=== PATIENT | male | born 1980 | race Caucasian/White ===

== ENCOUNTER → 2019-05-20 | Outpatient (CLI) | payer OTHER ==
--- NOTE | 2019-05-20 21:23 | XR ---
EXAMINATION TYPE: XR cervical spine comp, 5 views XR thoracic spine 3 views XR lumbosacral spine min 5 views DATE OF EXAM: 05/20/2019 COMPARISON: None HISTORY: 39-year-old male with back pain FINDINGS: Cervical spine: Mild facet arthropathy. Disc interspaces are relatively maintained. No predental space widening or pr evertebral soft tissue swelling. Alignment is maintained. Normal odontoid view. Mild bony spondylotic neuroforaminal narrowing on the right at C3-C4 and C6-C7. Limited assessment of the left-sided neuro foramen due to the degree of obliquity. Thoracic spine: 12 rib bearing thoracic vertebral bodies. All pedicles are visualized. Mild endplate spondylosis mid to lower thoracic spine. Vertebral body heights are preserved and alignment is maintained. Lumbar spine: 5 lumbar type vertebral bodies. No pars interarticularis defect. Scattered mild facet degenerative ch alban. Vertebral body height and alignment is maintained. Disc interspaces relatively maintained. IMPRESSION: 1. Cervical spine: Scattered mild facet arthropathy. Mild bony neuroforaminal narrowing on the right at C3-C4 and C6-C7. 2. Thoracic spine: Mild endplate spondylosis mid to lower thoracic spine. No vertebral compression co llapse or malalignment. 3. Lumbar spine: Mild facet arthropathy. No vertebral compression collapse or malalignment.
== END | disposition home or self-care (01) ==
LOC: RADXRMAIN 16:16
PROVIDERS: ATTEND Internal Medicine
DX: M48.02 Spinal stenosis, cervical region (principal); M46.92 Unspecified inflammatory spondylopathy, cervical region; M47.814 Spondylosis without myelopathy or radiculopathy, thoracic region; M46.96 Unspecified inflammatory spondylopathy, lumbar region; E29.1 Testicular hypofunction
CPT/HCPCS: 72050; 72070; 72110; 84402; 84403

== ENCOUNTER 2022-03-15 20:09 | Emergency (ER) | payer OTHER ==
[2022-03-15 20:26] VITALS: TEMP 99.2
[2022-03-15] MEDS ORDERED: SODIUM CHLORIDE 0.9% 1,000 ML IV STA (20:28)
[2022-03-15] MEDS ORDERED: LORazepam 2 MG/ML INJ IV STA ×2 (20:28→22:47)
--- NOTE | 2022-03-15 20:31 | ED ---
General Adult HPI - General Chief complaint: Seizure Stated complaint: Seizure Time Seen by Provider: 03/15/22 20:27 Source: EMS Mode of arrival: EMS Limitations: no limitations - History of Present Illness Initial comments: This is a pleasant 42-year-old male with a history of alcoholism and thyroid disorder. Patient currently at [facility] for alcohol abuse. Patient's last drink was 4 days ago. According to [facility] staff patient had seizure activity lasting for about 60 seconds. This was tonic- clonic event. Patient states he did have a prodrome of seeing stars, a warm feeling prior to the seizure. Patient has no history of seizure activity. No current complaints. Denies any notable injury.Patient states that the symptoms of lightheadedness, seeing stars actually occurred earlier today as well after he witnessed a seizure. 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 Patient states he again felt lightheaded and was seeing stars. Next thing he knows he was on the ground. Patient is unsure how long he was out. It does not sound like there is any postictal episode. No headache, no fever or chills, no changes in vision or hearing, no sore throat or difficulty with speech, no neck pain, no chest pain or shortness of breath, no abdominal pain, no nausea or vomiting, no changes in urination or bowel movements, no numbness or tingling, no extremity pain, no skin rashes or lesions. - Related Data Home Medications Medication Instructions Recorded Confirmed Baclofen [Lioresal] 10 mg PO BID 03/15/22 03/15/22 Folic Acid 1 mg PO DAILY 03/15/22 03/15/22 Naproxen [EC-Naprosyn] 500 mg PO BID PRN 03/15/22 03/15/22 Nicotine 21Mg/24Hr Patch [Habitrol] 1 patch TRANSDERM DAILY PRN 03/15/2202/25 buPROPion SR [Wellbutrin SR] 150 mg PO BID PRN 03/15/22 03/15/22 busPIRone HCL 15 mg PO BID PRN 03/15/22 03/15/22 tiZANidine HCL 4 mg PO HS PRN 03/15/22 03/15/22 Allergies Allergy/AdvReac Type Severity Reaction Status Date / Time nickel Allergy Rash/Hives Verified 03/15/22 21:27 latex AdvReac Rash/Hives Verified 03/15/22 21:27 Review of Systems ROS Statement: Those systems with pertinent positive or pertinent negative responses have been documented in the HPI. ROS Other: All systems not noted in ROS Statement are negative. Past Medical History Past Medical History: Thyroid Disorder History of Any Multi-Drug Resistant Organisms: MRSA Date of last positivie culture/infection: 2012 MDRO Source:: rt FA Past Surgical History: Orthopedic Surgery Past Psychological History: Depression Smoking Status: Current every day smoker Past Alcohol Use History: Daily Past Drug Use History: Marijuana General Exam - General Exam Comments Initial Comments: Cranial nerves 2 through 12 intact. No focal neurologic deficits. Limitations: no limitations General appearance: alert, in no apparent distress Head exam: Present: atraumatic, normocephalic, normal inspection Eye exam: Present: normal appearance, PERRL, EOMI. Absent: scleral icterus, conjunctival injection, periorbital swelling Pupils: Present: normal accommodation. Absent: unequal ENT exam: Present: normal exam, normal oropharynx, mucous membranes moist, TM's normal bilaterally, normal external ear exam. Absent: mucous membranes dry Neck exam: Present: normal inspection, tenderness (Mild muscular tenderness. No midline tenderness.), full ROM. Absent: meningismus, lymphadenopathy Respiratory exam: Present: normal lung sounds bilaterally. Absent: respiratory distress, wheezes, rales, rhonchi, stridor, chest wall tenderness, accessory muscle use Cardiovascular Exam: Present: regular rate, normal rhythm, normal heart sounds. Absent: systolic murmur, diastolic murmur, rubs, gallop, clicks GI/Abdominal exam: Present: soft, normal bowel sounds. Absent: distended, tenderness, guarding, rebound, rigid Extremities exam: Present: normal inspection, full ROM, normal capillary refill. Absent: tenderness, pedal edema, joint swelling, calf tenderness Back exam: Present: normal inspection Neurological exam: Present: alert, oriented X3, CN II-XII intact, normal gait, reflexes normal. Absent: altered, abnormal gait, motor sensory deficit Psychiatric exam: Present: normal affect, normal mood Skin exam: Present: warm, dry, intact, normal color. Absent: rash Course Vital Signs 03/15/22 03/15/22 20:14 21:33 Temperature 99.2 F Pulse Rate 75 89 Respiratory 18 18 Rate Blood Pressure 135/85 120/83 O2 Sat by Pulse 96 98 Oximetry - Reevaluation(s) Reevaluation #1: 03/15/22 22:39 Medical record is reviewed Symptoms are improved here in the emergency department Patient is informed of results and questions answered Patient in no distress Repeat neurological evaluation is benign. Patient in no distress. EKG Findings - EKG Comments: EKG Findings:: EKG done at 9 PM and read by the ED attending physician reveals sinus rhythm with rate of 77, normal intervals, normal axis, no acute ST or T- wave changes. Normal QRS morphology. Medical Decision Making - Medical Decision Making Differential includes seizure versus syncopal episode. Given the patient's appearance and subjective complaints I believe this was more likely be a syncopal episode. Patient currently in no distress. Neurologically intact. Complaining of a bit of a stiff neck. Workup ordered. The case was discussed in detail with ED attending physician. Presentation, findings, treatment plan discussed in det Dr. Franz I suspect patient may have had a syncopal episode. There was no postictal period, no loss of bowel or bladder control. No tongue biting. We'll keep the patient without driving until follow-up with regular physician and neurology. - Lab Data Result diagrams: 03/15/22 20:31 03/15/22 20:31 Lab Results 03/15/22 03/15/22 03/15/22 Range/Units 20:31 20:31 20:39 WBC 6.0 (3.8-10.6) k/uL RBC 3.61 L (4.30-5.90) m/uL Hgb 12.4 L (13.0-17.5) gm/dL Hct 36.6 L (39.0-53.0) % MCV 101.2 H (80.0-100.0) fL MCH 34.4 (25.0-35.0) pg MCHC 34.0 (31.0-37.0) g/dL RDW 15.7 H (11.5-15.5) % Plt Count 161 (150-450) k/uL MPV 8.3 Neutrophils % (Manual) 74 % Lymphocytes % (Manual) 17 % Monocytes % (Manual) 6 % Eosinophils % (Manual) 3 % Neutrophils # (Manual) 4.44 (1.3-7.7) k/uL Lymphocytes # (Manual) 1.02 (1.0-4.8) k/uL Monocytes # (Manual) 0.36 (0-1.0) k/uL Eosinophils # (Manual) 0.18 (0-0.7) k/uL Nucleated RBCs 0 (0-0) /100 WBC Manual Slide Review Performed Macrocytosis Slight Sodium 136 L (137-145) mmol/L Potassium 4.3 (3.5-5.1) mmol/L Chloride 104 (98-107) mmol/L Carbon Dioxide 27 (22-30) mmol/L Anion Gap 5 mmol/L BUN 14 (9-20) mg/dL Creatinine 0.58 L (0.66-1.25) mg/dL Est GFR (CKD-EPI)AfAm >90 (>60 ml/min/1.73 sqM) Est GFR (CKD-EPI)NonAf >90 (>60 ml/min/1.73 sqM) Glucose 122 H (74-99) mg/dL Calcium 9.2 (8.4-10.2) mg/dL Magnesium 1.9 (1.6-2.3) mg/dL Total Bilirubin 0.6 (0.2-1.3) mg/dL AST 80 H (17-59) U/L ALT 99 H (4-49) U/L Alkaline Phosphatase 44 (38-126) U/L Total Protein 6.9 (6.3-8.2) g/dL Albumin 3.9 (3.5-5.0) g/dL Urine Color Yellow Urine Appearance Cloudy (Clear) Urine pH 6.5 (5.0-8.0) Ur Specific [place] 1.024 (1.001-1.035) Urine Protein 1+ H (Negative) Urine Glucose (UA) Negative (Negative) Urine Ketones Negative (Negative) Urine Blood Negative (Negative) Urine Nitrite Negative (Negative) Urine Bilirubin Negative (Negative) Urine Urobilinogen <2.0 (<2.0) mg/dL Ur Leukocyte Esterase Negative (Negative) Urine RBC 2 (0-5) /hpf Urine WBC 4 (0-5) /hpf Urine Bacteria Moderate H (None) /hpf Hyaline Casts 9 H (0-2) /lpf Urine Mucus Many H (None) /hpf Urine Opiates Screen Not Detected (NotDetected) Ur Oxycodone Screen Not Detected (NotDetected) Urine Methadone Screen Not Detected (NotDetected) Ur Propoxyphene Screen Not Detected (NotDetected) Ur Barbiturates Screen Not Detected (NotDetected) U Tricyclic Antidepress Not Detected (NotDetected) Ur Phencyclidine Scrn Not Detected (NotDetected) Ur Amphetamines Screen Not Detected (NotDetected) U Methamphetamines Scrn Not Detected (NotDetected) U Benzodiazepines Scrn Detected H (NotDetected) Urine Cocaine Screen Not Detected (NotDetected) U Marijuana (THC) Screen Not Detected (NotDetected) Serum Alcohol <10 mg/dL - Radiology Data Radiology results: report reviewed, image reviewed Disposition Clinical Impression: Syncope, Seizure-like activity Narrative: Possible seizure Disposition: HOME SELF-CARE Condition: Good Instructions (If sedation given, give patient instructions): Syncope (ED), New- Onset Seizure in Adults (ED) Additional Instructions: Syncope versus seizure. Follow-up with the regular physician and the neurologist as directed. No driving until clearance by the treating physician. Follow-up with your regular physician as directed. Return to the ER immediately if any symptoms worsen, new symptoms arise, or any other problems develop. Is patient prescribed a controlled substance at d/c from ED?: No Referrals: Shaheen Almanza MD [Primary Care Provider] - 1-2 days Sandy Duran MD [REFERRING] - 03/20/22 Time of Disposition: 22:41
[2022-03-15] MEDS ORDERED: SODIUM CHLORIDE 0.9% 1,000 ML IV ONE (20:32)
[2022-03-15 21:07] LABS: Appearance,Urine Cloudy (Clear); Bacteria,Urine Moderate /hpf; Bilirubin,Urine Negative (Negative); Blood,Urine Negative (Negative); Color,Urine Yellow; Glucose,Urine (UA) Negative (Negative); Hyaline Casts,Urine 9 /lpf (0-2); Ketones,Urine Negative (Negative); Leukocyte Esterase,Urine Negative (Negative); Mucus,Urine Many /hpf; Nitrite,Urine Negative (Negative); PH, Urine 6.5 (5.0-8.0); Protein,Urine 1+ (Negative); RBC,Urine 2 /hpf (0-5); Specific Gravity,Urine 1.024 (1.001-1.035); Urobilinogen,Urine <2.0 mg/dL (<2.0); WBC,Urine 4 /hpf (0-5)
[2022-03-15 21:15] LABS: Amphetamine Screen,Urine Not Detected (NotDetected); Barbiturate Screen,Urine Not Detected (NotDetected); Benzodiazepines Screen,Urine Detected (NotDetected); Cocaine Screen,Urine Not Detected (NotDetected); Methadone Screen, Urine Not Detected (NotDetected); Opiate Screen,Urine Not Detected (NotDetected); Oxycodone Screen, Urine Not Detected (NotDetected); Phencyclidine Screen,Urine Not Detected (NotDetected); Tricyclic Antidepressant,Urine Not Detected (NotDetected); Urn Cannabinoid Scrn Not Detected (NotDetected)
[2022-03-15 21:18] LABS: ALT 99 U/L (4-49); AST 80 U/L (17-59); African American GFR (CKD) >90 (>60 ml/min/1.73 sqM); Albumin 3.9 g/dL (3.5-5.0); Alcohol <10 mg/dL; Alkaline Phosphatase 44 U/L (38-126); Anion Gap 5 mmol/L; Blood Urea Nitrogen 14 mg/dL (9-20); Calcium 9.2 mg/dL (8.4-10.2); Carbon Dioxide 27 mmol/L (22-30); Chloride 104 mmol/L (98-107); Glucose 122 mg/dL (74-99); Magnesium 1.9 mg/dL (1.6-2.3); Non-African American GFR(CKD) >90 (>60 ml/min/1.73 sqM); Potassium 4.3 mmol/L (3.5-5.1); Sodium 136 mmol/L (137-145); Total Bilirubin 0.6 mg/dL (0.2-1.3); Total Protein 6.9 g/dL (6.3-8.2)
--- NOTE | 2022-03-15 21:21 | CT ---
EXAMINATION TYPE: CT brain palak brice con DATE OF EXAM: 03/15/2022 COMPARISON: None HISTORY: Seizure activity TECHNIQUE: CT scan of the head and cervical spine without contrast CT DLP: 1518.7 mGycm Automated exposure control for dose reduction was used. FINDINGS: No acute intracranial hemorrhage, midline shift or mass effect. [place]-white matter differentiation is preserved. CSF spaces and ventricles are normal in configuration. No acute orbital, osseous or soft tissue abnormalities seen. Mucosal sinus disease in the ethmoid sinus and right maxillary sinus. Partially opacified posterior r ight mastoid air cells. The cervical junction is maintained. No acute fracture or dislocation seen in the calvarium or cervic al spine. No significant bony spinal canal stenosis. No significant degenerative changes. Airways are symmetric. The parapharyngeal fat is maintained. No cervical lymphadenopathy. IMPRESSION: NO ACUTE INTRACRANIAL ABNORMALITY. NO ACUTE FRACTURE OR DISLOCATION THE CERVICAL SPINE. MUCOSAL SINUS DISEASE DESCRIBED ABOVE.
[2022-03-15 21:22] LABS: HCT 36.6 % (39.0-53.0); HGB 12.4 gm/dL (13.0-17.5); MCH 34.4 pg (25.0-35.0); MCV 101.2 fL (80.0-100.0); Macrocytosis Slight; Mean Platelet Volume 8.3; Platelet Count 161 k/uL (150-450); RBC 3.61 m/uL (4.30-5.90); RDW 15.7 % (11.5-15.5)
[2022-03-15] MEDS ORDERED: ACETAMINOPHEN TAB 500 MG TAB PO STA (21:53)
[2022-03-15] MEDS ORDERED: IBUPROFEN 400 MG TAB PO STA (21:53)
[2022-03-15 22:13] LABS: Eosinophils # (M) 0.18 k/uL (0-0.7); Lymphocytes # (M) 1.02 k/uL (1.0-4.8); Monocytes # (M) 0.36 k/uL (0-1.0); Neutrophils # (M) 4.44 k/uL (1.3-7.7); Neutrophils % (M) 74 %; Nucleated Red Blood Cells 0 /100 WBC (0-0); Total Cells Counted 100
[2022-03-15 23:49] VITALS: BP 135/95; PULSE 78; RESP 16
== END 2022-03-15 23:49 | disposition home or self-care (01) ==
LOC: EC 20:09
DX: R56.9 Unspecified convulsions (principal); R55 Syncope and collapse; F32.A Depression, unspecified; F17.200 Nicotine dependence, unspecified, uncomplicated; F12.90 Cannabis use, unspecified, uncomplicated; Z79.899 Other long term (current) drug therapy
CPT/HCPCS: 36415; 93005; 80053; 83735; 85025; 81001; 80306; 72125; 70450; 99285; 96374; 96376; 96361; G0480; J2060; 80320

== ENCOUNTER 2022-06-16 16:25 | Observation (INO) | payer OTHER ==
[2022-06-16] MEDS ORDERED: SODIUM CHLORIDE 0.9% 2,000 ML IV STA (16:55)
[2022-06-16] MEDS ORDERED: NALOXONE 0.4 MG/ML 1 ML VIAL IV PRN (17:28)
[2022-06-16] MEDS ORDERED: ONDANSETRON 4 MG/2 ML VIAL IVP PRN (17:28)
[2022-06-16 17:34] LABS: Appearance,Urine Clear (Clear); Bilirubin,Urine Negative (Negative); Blood,Urine Negative (Negative); Color,Urine Light Yellow; Glucose,Urine (UA) Negative (Negative); Ketones,Urine Negative (Negative); Leukocyte Esterase,Urine Negative (Negative); Nitrite,Urine Negative (Negative); PH, Urine 6.5 (5.0-8.0); Protein,Urine Negative (Negative); Specific Gravity,Urine 1.004 (1.001-1.035); Urobilinogen,Urine <2.0 mg/dL (<2.0)
[2022-06-16 17:41] LABS: ALT 50 U/L (4-49); African American GFR (CKD) >90 (>60 ml/min/1.73 sqM); Anion Gap 12 mmol/L; Blood Urea Nitrogen 14 mg/dL (9-20); Calcium 8.8 mg/dL (8.4-10.2); Carbon Dioxide 26 mmol/L (22-30); Chloride 109 mmol/L (98-107); Glucose 130 mg/dL (74-99); Non-African American GFR(CKD) >90 (>60 ml/min/1.73 sqM); Sodium 147 mmol/L (137-145); Total Bilirubin 0.6 mg/dL (0.2-1.3)
[2022-06-16 17:43] LABS: Amphetamine Screen,Urine Not Detected (NotDetected); Barbiturate Screen,Urine Not Detected (NotDetected); Benzodiazepines Screen,Urine Not Detected (NotDetected); Cocaine Screen,Urine Not Detected (NotDetected); Methadone Screen, Urine Not Detected (NotDetected); Opiate Screen,Urine Not Detected (NotDetected); Oxycodone Screen, Urine Not Detected (NotDetected); Phencyclidine Screen,Urine Not Detected (NotDetected); Tricyclic Antidepressant,Urine Not Detected (NotDetected); Urn Cannabinoid Scrn Not Detected (NotDetected)
[2022-06-16 18:00] LABS: HCT 41.9 % (39.0-53.0); HGB 14.2 gm/dL (13.0-17.5); MCH 31.7 pg (25.0-35.0); MCHC 33.8 g/dL (31.0-37.0); MCV 93.6 fL (80.0-100.0); Mean Platelet Volume 6.8; Platelet Count 240 k/uL (150-450); RBC 4.48 m/uL (4.30-5.90); RDW 14.8 % (11.5-15.5); WBC 3.7 k/uL (3.8-10.6)
[2022-06-16 18:04] LABS: AST 82 U/L (17-59); Alcohol 475 mg/dL; Potassium 4.9 mmol/L (3.5-5.1)
[2022-06-16 18:05] LABS: Albumin 4.7 g/dL (3.5-5.0); Alkaline Phosphatase 24 U/L (38-126); Total Protein 7.7 g/dL (6.3-8.2)
[2022-06-16 18:18] LABS: Band Neutrophils % 2 %; Eosinophils # (M) 0.22 k/uL (0-0.7); Lymphocytes # (M) 2.04 k/uL (1.0-4.8); Monocytes # (M) 0.11 k/uL (0-1.0); Neutrophils % (M) 34 %; Nucleated Red Blood Cells 0 /100 WBC (0-0); Stomatocytes Present; Total Cells Counted 100
--- NOTE | 2022-06-16 18:26 | ED ---
General Adult HPI - General Chief complaint: Psychiatric Symptoms Stated complaint: possible overdose Time Seen by Provider: 06/16/22 16:39 Source: patient Mode of arrival: ambulatory Limitations: no limitations - History of Present Illness Initial comments: Patient is a 42-year-old male with a past medical history of alcohol use disorder presents to the emergency department for alcohol intoxication. Patient's girlfriend is at bedside and helps present history. States patient was having suicidal thoughts and before being brought to the emergency de partment he started drinking a lot of alcohol. Patient relapsed on alcohol 2 weeks ago. His girlfriend states he has been drinking half a gallon of liquor a day. Last drink was this afternoon. His girlfriend is also concerned patient took unknown drugs. Patient is very intoxicated during our conversation however states he took [place], unknown amount. Patient is apparently prescribed [place] for back pain. Prescription reports he does have history of delirium tremens and seizures from alcohol withdrawal. Patient denies fever, chills, shortness of breath, chest pain, abdominal pain, and other concerns - Related Data Home Medications Medication Instructions Recorded Confirmed Baclofen [Lioresal] 10 mg PO BID 03/15/22 03/15/22 Folic Acid 1 mg PO DAILY 03/15/22 03/15/22 Naproxen [EC-Naprosyn] 500 mg PO BID PRN 03/15/22 03/15/22 Nicotine 21Mg/24Hr Patch [Habitrol] 1 patch TRANSDERM DAILY PRN 03/15/22 03/15/22 buPROPion SR [Wellbutrin SR] 150 mg PO BID PRN 03/15/22 03/15/22 busPIRone HCL 15 mg PO BID PRN 03/15/22 03/15/22 tiZANidine HCL 4 mg PO HS PRN 03/15/22 03/15/22 Allergies Allergy/AdvReac Type Severity Reaction Status Date / Time nickel Allergy Rash/Hives Verified 06/16/22 16:37 latex AdvReac Rash/Hives Verified 06/16/22 16:37 Review of Systems ROS Statement: Those systems with pertinent positive or pertinent negative responses have been documented in the HPI. ROS Other: All systems not noted in ROS Statement are negative. Past Medical History Past Medical History: Thyroid Disorder History of Any Multi-Drug Resistant Organisms: MRSA Date of last positivie culture/infection: 2013 MDRO Source:: rt FA Past Surgical History: Orthopedic Surgery Past Psychological History: Depression Smoking Status: Current every day smoker Past Alcohol Use History: Daily Past Drug Use History: Marijuana General Exam Limitations: no limitations General appearance: in no apparent distress, appears intoxicated, lethargic Head exam: Present: atraumatic, normocephalic, normal inspection Eye exam: Present: normal appearance, PERRL, EOMI. Absent: scleral icterus, conjunctival injection, periorbital swelling Respiratory exam: Present: normal lung sounds bilaterally. Absent: respiratory distress, wheezes, rales, rhonchi, stridor Cardiovascular Exam: Present: regular rate, normal rhythm, normal heart sounds. Absent: systolic murmur, diastolic murmur, rubs, gallop, clicks GI/Abdominal exam: Present: soft, normal bowel sounds. Absent: distended, tenderness, guarding, rebound, rigid Neurological exam: Present: altered, CN II-XII intact. Absent: oriented X3 (x 1 to person ) Psychiatric exam: Present: normal mood. Absent: normal affect Skin exam: Present: warm, dry, intact, normal color. Absent: rash Course Vital Signs 06/16/22 16:34 Temperature 98.6 F Pulse Rate 96 Respiratory 22 Rate Blood Pressure 181/141 O2 Sat by Pulse 96 Oximetry Medical Decision Making - Medical Decision Making This is a 42-year-old male who presents for alcohol intoxication. Thorough history and examination were performed. Vitals stable. Patient is alert and oriented 1. He appears very intoxicated. He is lethargic but able to answer some questions. There are no tremors of the tongue or hands. Breath alcohol level is 0.329%. Case discussed with Dr. Steven. Patient will be admitted to her service for alcohol intoxication. Once he is sober he will have psychiatric evaluation. Admission discussed with patient's girlfriend who is agreeable. Dr. Rebollar is my attending. - Lab Data Result diagrams: 06/16/22 17:40 06/16/22 17:02 Lab Results 06/16/22 06/16/22 06/16/22 Range/Units 17:02 17:02 17:02 WBC (3.8-10.6) k/uL RBC (4.30-5.90) m/uL Hgb (13.0-17.5) gm/dL Hct (39.0-53.0) % MCV (80.0-100.0) fL MCH (25.0-35.0) pg MCHC (31.0-37.0) g/dL RDW (11.5-15.5) % Plt Count (150-450) k/uL MPV Neutrophils % (Manual) % Band Neuts % (Manual) % Lymphocytes % (Manual) % Monocytes % (Manual) % Eosinophils % (Manual) % Neutrophils # (Manual) (1.3-7.7) k/uL Lymphocytes # (Manual) (1.0-4.8) k/uL Monocytes # (Manual) (0-1.0) k/uL Eosinophils # (Manual) (0-0.7) k/uL Nucleated RBCs (0-0) /100 WBC Manual Slide Review Stomatocytes Sodium 147 H (137-145) mmol/L Potassium 4.9 (3.5-5.1) mmol/L Chloride 109 H (98-107) mmol/L Carbon Dioxide 26 (22-30) mmol/L Anion Gap 12 mmol/L BUN 14 (9-20) mg/dL Creatinine 0.80 (0.66-1.25) mg/dL Est GFR (CKD-EPI)AfAm >90 (>60 ml/min/1.73 sqM) Est GFR (CKD-EPI)NonAf >90 (>60 ml/min/1.73 sqM) Glucose 130 H (74-99) mg/dL Calcium 8.8 (8.4-10.2) mg/dL Total Bilirubin 0.6 (0.2-1.3) mg/dL AST 82 H (17-59) U/L ALT 50 H (4-49) U/L Alkaline Phosphatase 24 L (38-126) U/L Total Protein 7.7 (6.3-8.2) g/dL Albumin 4.7 (3.5-5.0) g/dL Urine Color Light Yellow Urine Appearance Clear (Clear) Urine pH 6.5 (5.0-8.0) Ur Specific [place] 1.004 (1.001-1.035) Urine Protein Negative (Negative) Urine Glucose (UA) Negative (Negative) Urine Ketones Negative (Negative) Urine Blood Negative (Negative) Urine Nitrite Negative (Negative) Urine Bilirubin Negative (Negative) Urine Urobilinogen <2.0 (<2.0) mg/dL Ur Leukocyte Esterase Negative (Negative) Urine Opiates Screen Not Detected (NotDetected) Ur Oxycodone Screen Not Detected (NotDetected) Urine Methadone Screen Not Detected (NotDetected) Ur Propoxyphene Screen Not Detected (NotDetected) Ur Barbiturates Screen Not Detected (NotDetected) U Tricyclic Antidepress Not Detected (NotDetected) Ur Phencyclidine Scrn Not Detected (NotDetected) Ur Amphetamines Screen Not Detected (NotDetected) U Methamphetamines Scrn Not Detected (NotDetected) U Benzodiazepines Scrn Not Detected (NotDetected) Urine Cocaine Screen Not Detected (NotDetected) U Marijuana (THC) Screen Not Detected (NotDetected) Serum Alcohol 475 H* mg/dL 06/16/22 Range/Units 17:40 WBC 3.7 L (3.8-10.6) k/uL RBC 4.48 (4.30-5.90) m/uL Hgb 14.2 (13.0-17.5) gm/dL Hct 41.9 (39.0-53.0) % MCV 93.6 (80.0-100.0) fL MCH 31.7 (25.0-35.0) pg MCHC 33.8 (31.0-37.0) g/dL RDW 14.8 (11.5-15.5) % Plt Count 240 (150-450) k/uL MPV 6.8 Neutrophils % (Manual) 34 % Band Neuts % (Manual) 2 % Lymphocytes % (Manual) 55 % Monocytes % (Manual) 3 % Eosinophils % (Manual) 6 % Neutrophils # (Manual) 1.30 (1.3-7.7) k/uL Lymphocytes # (Manual) 2.04 (1.0-4.8) k/uL Monocytes # (Manual) 0.11 (0-1.0) k/uL Eosinophils # (Manual) 0.22 (0-0.7) k/uL Nucleated RBCs 0 (0-0) /100 WBC Manual Slide Review Performed Stomatocytes Present Sodium (137-145) mmol/L Potassium (3.5-5.1) mmol/L Chloride (98-107) mmol/L Carbon Dioxide (22-30) mmol/L Anion Gap mmol/L BUN (9-20) mg/dL Creatinine (0.66-1.25) mg/dL Est GFR (CKD-EPI)AfAm (>60 ml/min/1.73 sqM) Est GFR (CKD-EPI)NonAf (>60 ml/min/1.73 sqM) Glucose (74-99) mg/dL Calcium (8.4-10.2) mg/dL Total Bilirubin (0.2-1.3) mg/dL AST (17-59) U/L ALT (4-49) U/L Alkaline Phosphatase (38-126) U/L Total Protein (6.3-8.2) g/dL Albumin (3.5-5.0) g/dL Urine Color Urine Appearance (Clear) Urine pH (5.0-8.0) Ur Specific [place] (1.001-1.035) Urine Protein (Negative) Urine Glucose (UA) (Negative) Urine Ketones (Negative) Urine Blood (Negative) Urine Nitrite (Negative) Urine Bilirubin (Negative) Urine Urobilinogen (<2.0) mg/dL Ur Leukocyte Esterase (Negative) Urine Opiates Screen (NotDetected) Ur Oxycodone Screen (NotDetected) Urine Methadone Screen (NotDetected) Ur Propoxyphene Screen (NotDetected) Ur Barbiturates Screen (NotDetected) U Tricyclic Antidepress (NotDetected) Ur Phencyclidine Scrn (NotDetected) Ur Amphetamines Screen (NotDetected) U Methamphetamines Scrn (NotDetected) U Benzodiazepines Scrn (NotDetected) Urine Cocaine Screen (NotDetected) U Marijuana (THC) Screen (NotDetected) Serum Alcohol mg/dL Disposition Clinical Impression: Alcohol intoxication, Drug use, Suicidal ideation Disposition: ADMITTED IP TO THIS HOSP Condition: Fair Referrals: Shaheen Almanza MD [Primary Care Provider] - 1-2 days Decision Time: 18:38
[2022-06-16] MEDS ORDERED: THIAMINE 100 MG/ML 2 ML VIAL IM STA (19:02)
[2022-06-16] MEDS: FOLIC ACID 1 MG TAB PO SCH (19:34)
[2022-06-16] MEDS ORDERED: chlordiazePOXIDE 25 MG CAP PO STA (22:59)
[2022-06-16] MEDS: HYDROcodone/APAP 5-325MG 1 EACH TAB PO PRN (23:12)
[2022-06-16] MEDS: SODIUM CHLORIDE 0.9% 1,000 ML IV SCH (23:21)
[2022-06-16] MEDS ORDERED: chlordiazePOXIDE 25 MG CAP PO PRN (23:54)
[2022-06-17] MEDS: chlordiazePOXIDE 25 MG CAP PO PRN ×4 (02:42→20:19)
[2022-06-17] MEDS: SODIUM CHLORIDE 0.9% 1,000 ML IV SCH ×2 (04:27→12:19)
[2022-06-17] MEDS: FOLIC ACID 1 MG TAB PO SCH ×2 (07:40→07:45)
[2022-06-17] MEDS: THIAMINE 100 MG TAB PO SCH ×2 (07:46→17:28)
[2022-06-17] MEDS ORDERED: chlordiazePOXIDE 25 MG CAP PO SCH (09:00)
[2022-06-17 11:47] LABS: Basophils # (A) 0.04 X 10*3/uL (0.00-0.10); Basophils % (A) 0.9 %; Eosinophils # (A) 0.14 X 10*3/uL (0.04-0.35); Eosinophils % (A) 3.2 %; HCT 36.1 % (39.6-50.0); HGB 11.7 g/dL (13.0-17.0); Immature Grans, Automated 0.2 %; Lymphocytes # (A) 2.11 X 10*3/uL (0.90-5.00); Lymphocytes % (A) 48.3 %; MCH 29.8 pg (27.0-32.0); MCHC 32.4 g/dL (32.0-37.0); MCV 92.1 fL (80.0-97.0); Mean Platelet Volume 9.6 fL (9.5-12.2); Monocytes # (A) 0.39 X 10*3/uL (0.20-1.00); Monocytes % (A) 8.9 %; NRBC Per 100 WBC 0 /100 WBCS (0.0-0.0); Neutrophils # (A) 1.68 X 10*3/uL (1.80-7.70); Neutrophils % (A) 38.5 %; Platelet Count 196 X 10*3/uL (140-440); RBC 3.92 X 10*6/uL (4.40-5.60); RDW 14.6 % (11.5-14.5); WBC 4.37 X 10*3/uL (4.50-10.00)
[2022-06-17] MEDS: HYDROcodone/APAP 5-325MG 1 EACH TAB PO PRN ×2 (12:17→20:19)
[2022-06-17 12:34] LABS: African American GFR (CKD) 135.9 (60.0-200.0); Anion Gap 14.4 mmol/L (10.00-18.00); BUN/Creat Ratio 16.86 Ratio (12.00-20.00); Blood Urea Nitrogen 11.8 mg/dL (9.0-27.0); Calcium 7.8 mg/dL (8.7-10.3); Carbon Dioxide 21.6 mmol/L (20.0-27.5); Non-African American GFR(CKD) 117.2 (60.0-200.0); Potassium 3.7 mmol/L (3.5-5.5)
[2022-06-17 12:36] LABS: ALT 43 U/L (10-49); AST 48 U/L (14-35); Albumin 3.5 g/dL (3.8-4.9); Albumin/Globulin Ratio 1.93 (1.60-3.17); Alkaline Phosphatase 31 U/L (41-126); Bilirubin, Conjugated <0.20 mg/dL (0.20-0.40); Globulin 1.8 g/dL (1.6-3.3); Total Protein 5.4 g/dL (6.2-8.2)
--- NOTE | 2022-06-17 14:44 | P.HPIM ---
History of Present Illness H&P Date: 06/16/22 Chief Complaint: EtOH intoxication/possible overdose 42-year-old male with a past medical history of alcohol use disorder presents to the emergency department for alcohol intoxication. Patient's girlfriend is at bedside and helps present history. States patient was having suicidal thoughts and before being brought to the emergency department he started drinking a lot of alcohol. Patient relapsed on alcohol 2 weeks ago. His girlfriend states he has been drinking half a gallon of liquor a day. Last drink was this afternoon. His girlfriend is also concerned patient took unknown drugs. Patient is very intoxicated during our conversation however states he took [place], unknown amount. Patient is apparently prescribed [place] for back pain. Prescription reports he does have history of delirium tremens and seizures from alcohol withdrawal. Patient denies fever, chills, shortness of breath, chest pain, abdominal pain, and other concerns Blood work completed in ED reveals WBC of 2.7, hemoglobin of 14.2 and platelet count of 240, sodium 147, potassium 4.9, BUN/creatinine of 14/0.80 and blood glucose 130; breath alcohol level of 0.39%; serum alcohol level of 475; AST/ALT elevated at 82/50 Review of Systems ROS unobtainable: due to mental status Past Medical History Past Medical History: Thyroid Disorder History of Any Multi-Drug Resistant Organisms: MRSA Date of last positivie culture/infection: 2012 MDRO Source:: rt FA Past Surgical History: Orthopedic Surgery Past Psychological History: Depression Smoking Status: Current every day smoker Past Alcohol Use History: Daily Past Drug Use History: Marijuana Medications and Allergies Home Medications Medication Instructions Recorded Confirmed Type buPROPion SR [Wellbutrin SR] 150 mg PO BID 03/15/22 06/16/22 History Hydrocodone/Acetaminophen 1 tab PO BID PRN 06/16/22 06/16/22 History [Hydrocodone/Acetaminophen 5-325] Allergies Allergy/AdvReac Type Severity Reaction Status Date / Time nickel Allergy Rash/Hives Verified 06/16/22 18:40 latex AdvReac Rash/Hives Verified 06/16/22 18:40 Physical Exam Vitals: Vital Signs Temp Pulse Resp BP Pulse Ox 06/16/22 16:34 98.6 F 96 22 181/141 96 Intake and Output 06/16/22 06/16/22 06/16/22 06:59 14:59 22:59 Other: Weight 95.254 kg General appearance: Present: average body habitus, cooperative, no acute distress Eyes: Present: anicteric sclerae, EOMI, PERRLA, normal appearance Neck: Present: normal ROM. Absent: lymphadenopathy, rigidity, thyromegaly Carotids: negative: bruit present Thyroid: bilateral: normal size, negative: enlarged, nodule Respiratory: bilateral: CTA, negative: rales, rhonchi, wheezing Cardiovascular: regular; : normal: S1, S2 Gastrointestinal: Present: normal bowel sounds, soft. Absent: distended, organomegaly, tenderness Genitourinary Comment(s): deferred Integumentary: Present: normal turgor. Absent: jaundiced, rash, ulcer Neurologic: Present: CNII-XII intact. Absent: focal deficits Musculoskeletal: Present: gait normal, strength equal bilaterally Results CBC & Chem 7: 06/17/22 06:36 06/17/22 06:36 Assessment and Plan Assessment: 1. Alcohol intoxication/pending withdrawal - Patient doesn't placed on IV fluid in form of normal saline at a rate of 1 30 mL an hour along with oral thiamine and folic acid 2. Possible drug overdose/altered mental status; likely with [place]; currently intoxicated also and remains on CIWA protocol with Librium 3. Suicidal ideation; questionable overdose with [place]; not clear how many tablets patient has taken; we will consult psych and continue with suicidal precautions 4. Transaminitis; likely related to EtOH abuse 5. Hyponatremia; sodium 147 at time of admission; patient isn't placed on IV fluids; we will monitor electrolytes closely and make adjustments accordingly 6. Depression; we will resume home dose of Wellbutrin once more awake and responsive 7. Chronic tobacco use; reenforced need for smoking cessation DVT prophylaxis; SCDs CODE STATUS; full code
--- NOTE | 2022-06-17 16:29 | P.CN ---
Psychiatric Consult - . Consult date: 06/17/22 Consult:: IDENTIFYING DATA AND REASON FOR CONSULT: The patient is a 42-year-old single male admitted this to medicine for management of acute clinical intoxication. The hospitalist consult to psychiatry because he expressed suicidal ideation. PERTINENT PSYCHIATRIC HISTORY: I reviewed the medical record and interviewed the patient. He acknowledged that he was having thoughts of suicide and wondered whether the combination of his drinking and use of clonazepam was a suicide attempt. He perseverated about his antidepressant Wellbutrin and wondered whether this the antidepressant was causing his suicidal thoughts or was no l onger effective in treating his depression. It addition, he complained of recurrent problems with anxiety. He has long history of alcohol use problems with multiple rehabilitation admissions. He was vague about the pattern of use but alleged that his alcohol use increase sometime last week. He usually begins drinking in the morning before he goes to work and then resumes drinking when he returns home. He drink of choice is either vodka or liquor. He has been purchasing Klonopin on the [employer] market that he reportedly is using to treat withdrawal symptoms when he cannot drink. He has taken Klonopin while he was drinking. He described feelings of depression and intermittent thoughts of suicide. He denied specific suicidal intent or plan. I was unable to clearly obtain a history of whether he had attempted suicide in the past. He described free- floating anxiety but I was unable to separate subjective anxiety from alcohol withdrawal symptoms. He denied experiencing psychotic symptoms such as confusion, hallucinations or paranoia. He denied the use of other drugs such as heroin, cocaine or methamphetamine. He is prescribed [place] for the treatment of chronic back pain. PAST PSYCHIATRIC AND/OR SUBSTANCE USE HISTORY: He has had 4 residential substance abuse treatment episode. His longest period of sobriety was following his first admission to [facility]. He had occasional telehealth meetings with a substance abuse counselor at [facility]. He did not follow through with the recommendation to begin their outpatient substance abuse treatment group. He denied psychiatric hospitalizations. He has not met with a psychiatrist or therapist outside of a substance abuse treatment program. He denied that he experienced alcohol withdrawal delirium or seizures. SOCIAL HISTORY: He is high school graduate. He is single and has no children. He has a fiance with whom he has a close and supportive relationship. 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 MENTAL STATUS EXAM: He presented as a 42-year-old disheveled appearing male who was pleasant on approach. He made eye contact and appeared to attend to interview. He had no distinguishing features or prominent physical abnormalities. He had a sad facial expression. He was alert and oriented to person, place and time. He showed psychomotor retardation but no abnormal involuntary movements. His speech was spontaneous with markedly decreased rate, volume and rhythm. His affect was depressed and not reactive. Denied homicidal ideation. He expressed feelings of hopelessness, helplessness and worthlessness particularly with regard to his uncontrolled alcohol use. He ruminated over some alcohol use and need for mental health treatment. He did not express ideas reference, paranoid ideation or delusions. His thinking was concrete but his associations record, logical and goal directed. He denied hallucinations did not appear to be responding to internal stimuli. Global impression of intellect is average. He is aware of his illness and need for treatment. IMPRESSIONS: He is a minimization man who has a history of alcohol use disorder and depression. He presented to [facility] acutely intoxicated and complaining of suicidal ideation. He described a pattern of increasing depression and suicidal ideation when he is drinking heavily. However he allege d that he remains depressed when he becomes sober. He has held multiple substance abuse treatment episodes with varying lengths of sobriety. There is no evidence of psychosis. He would benefit from inpatient psychiatric treatment. DIAGNOSIS: Alcohol intoxication, alcohol use disorder severe, alcohol induced mood disorder, major depressive disorder, benzodiazepine use disorder RECOMMENDATION: Continue detox protocol. Monitor for signs and symptoms delirium. Safety precautions with 1-1 until transfer to the psychiatric unit. Transfer her psychiatric unit when medically stable. Psychiatry will follow. 06/17/22 16:13
[2022-06-17] MEDS: IBUPROFEN 600 MG TAB PO PRN (16:59)
[2022-06-18] MEDS: chlordiazePOXIDE 25 MG CAP PO PRN ×3 (05:11→18:45)
[2022-06-18] MEDS: IBUPROFEN 600 MG TAB PO PRN (05:11)
[2022-06-18] MEDS: SODIUM CHLORIDE 0.9% 1,000 ML IV SCH ×4 (07:53→21:07)
[2022-06-18] MEDS: FOLIC ACID 1 MG TAB PO SCH (08:35)
[2022-06-18] MEDS: THIAMINE 100 MG TAB PO SCH ×2 (08:35→18:26)
[2022-06-18] MEDS ORDERED: CALCIUM CARBONATE 500 MG CHEWABLE PO PRN (09:48)
[2022-06-18 10:22] LABS: Anion Gap 8.8 mmol/L (10.00-18.00); BUN/Creat Ratio 12.68 Ratio (12.00-20.00); Blood Urea Nitrogen 9.9 mg/dL (9.0-27.0); Calcium 8.5 mg/dL (8.7-10.3); Carbon Dioxide 23.4 mmol/L (20.0-27.5); Non-African American GFR(CKD) 112.1 (60.0-200.0); Potassium 3.8 mmol/L (3.5-5.5)
[2022-06-18] MEDS: PANTOPRAZOLE 40 MG TABLET PO SCH (11:27)
[2022-06-18] MEDS: HYDROcodone/APAP 5-325MG 1 EACH TAB PO PRN ×2 (12:57→18:34)
--- NOTE | 2022-06-18 13:57 | P.CON ---
Consult Note - . Consult date: 06/18/22 Assessment/Plan:: Clinical Problems: Alcohol intoxication, alcohol use disorder severe, alcohol induced mood disorder, major depressive disorder, benzodiazepine use disorder Interim history: I reviewed the medical record and interviewed the patient. Th e patient remains on one-to-one due to history of suicidal ideation. Today, he reports minimal symptoms of alcohol withdrawal. However, he continues to feel depressed and reports feelings of hopelessness and helplessness. He has thoughts of but denied suicidal intent or plan. Mental status exam: He presented as a somewhat disheveled appearing 42-year-old male who was pleasant on approach. He had a sad facial expression. He showed psychomotor retardation patient but no abnormal movements. His speech was spontaneous, slow and monosyllable. His affect was depressed and not reactive. He has suicidal ideation and wishes but no plan or intent. His thinking is concrete but his associations were coherent or logical. He did not appear to responding to internal stimuli Assessment: He continues to show signs and symptoms of a depressive disorder. His alcohol withdrawal symptoms are minimal. He continues use half suicidal ideation. Plan: Continue one-to-one while he is on the medicine unit. Transfer him to psychiatric unit when medically stable.
[2022-06-18] MEDS: NICOTINE 14MG/24HR PATCH TRANSDERM SCH (18:26)
--- NOTE | 2022-06-18 21:24 | P.PN ---
Subjective Progress Note Date: 06/17/22 42-year-old male with a past medical history of alcohol use disorder presents to the emergency department for alcohol intoxication. Patient's girlfriend is at bedside and helps present history. States patient was having suicidal thoughts and before being brought to the emergency department he started drinking a lot of alcohol. Patient relapsed on alcohol 2 weeks ago. His girlfriend states he has been drinking half a gallon of liquor a day. Last drink was this afternoon. His girlfriend is also concerned patient took unknown drugs. Patient is very intoxicated during our conversation however states he took [place], unknown amount. Patient is apparently prescribed [place] for back pain. Prescription reports he does have history of delirium tremens and seizures from alcohol withdrawal. Patient denies fever, chills, shortness of breath, chest pain, abdominal pain, and other concerns Blood work completed in ED reveals WBC of 2.7, hemoglobin of 14.2 and platelet count of 240, sodium 147, potassium 4.9, BUN/creatinine of 14/0.80 and blood glucose 130; breath alcohol level of 0.39%; serum alcohol level of 475; AST/ALT elevated at 82/50 Objective - Vital Signs Vital signs: Vital Signs Temp 98.8 F 06/17/22 07:49 Pulse 67 06/17/22 07:49 Resp 16 06/17/22 07:49 BP 116/75 06/17/22 07:49 Pulse Ox 97 06/17/22 07:49 FiO2 Intake & Output 06/16/22 06/17/22 06/17/22 18:59 06:59 18:59 Intake Total 1540 120 Output Total 1000 Balance 540 120 Weight 95.254 kg 95.254 kg Intake: Intake, IV Titration 1040 Amount Sodium Chloride 0.9% 1, 1040 000 ml @ 130 mls/hr IV . Q7H42M [facility] Rx#:[id number] Oral 500 120 Output: Urine 1000 Other: Voiding Method Urinal Urinal # Voids 3 - Exam - Constitutional General appearance: Present: average body habitus, cooperative, no acute distress - EENT Eyes: Present: anicteric sclerae, EOMI, PERRLA, normal appearance ENT: Present: hearing grossly normal, normal oropharynx Ears: bilateral: normal - Neck Neck: Present: normal ROM. Absent: lymphadenopathy, rigidity, thyromegaly Carotids: negative: bruit present Thyroid: bilateral: normal size, negative: enlarged, nodule - Respiratory Respiratory: bilateral: CTA, negative: rales, rhonchi, wheezing - Cardiovascular Rhythm: regular Heart sounds: normal: S1, S2 Abnormal Heart Sounds: Absent: systolic murmur, diastolic murmur - Gastrointestinal General gastrointestinal: Present: normal bowel sounds, soft. Absent: distended, organomegaly, tenderness - Genitourinary Genitourinary Comment(s): deferred - Integumentary Integumentary: Present: normal turgor. Absent: jaundiced, rash, ulcer - Neurologic Neurologic: Present: CNII-XII intact. Absent: focal deficits - Musculoskeletal Musculoskeletal: Present: gait normal, strength equal bilaterally - Psychiatric Psychiatric: Present: A&O x's 3, appropriate affect, intact judgment & insight - Labs CBC & Chem 7: 06/17/22 06:36 06/18/22 06:20 Labs: Abnormal Lab Results - Last 24 Hours (Table) 06/16/22 06/16/22 06/17/22 Range/Units 17:02 17:40 06:36 WBC 3.7 L (3.8-10.6) k/uL RBC (4.40-5.60) X 10*6/uL Hgb (13.0-17.0) g/dL Hct (39.6-50.0) % RDW (11.5-14.5) % Neutrophils # (1.80-7.70) X 10*3/uL Sodium 147 H (137-145) mmol/L Chloride 109 H (98-107) mmol/L Glucose 130 H (74-99) mg/dL Calcium 7.8 L (8.7-10.3) mg/dL Conjugated Bilirubin (0.20-0.40) mg/dL AST 82 H (17-59) U/L ALT 50 H (4-49) U/L Alkaline Phosphatase 24 L (38-126) U/L Total Protein (6.2-8.2) g/dL Albumin (3.8-4.9) g/dL Serum Alcohol 475 H* mg/dL 06/17/22 06/17/22 Range/Units 06:36 06:36 WBC 4.37 L (3.8-10.6) k/uL RBC 3.92 L (4.40-5.60) X 10*6/uL Hgb 11.7 L (13.0-17.0) g/dL Hct 36.1 L (39.6-50.0) % RDW 14.6 H (11.5-14.5) % Neutrophils # 1.68 L (1.80-7.70) X 10*3/uL Sodium (137-145) mmol/L Chloride (98-107) mmol/L Glucose (74-99) mg/dL Calcium (8.7-10.3) mg/dL Conjugated Bilirubin <0.20 L (0.20-0.40) mg/dL AST 48 H (17-59) U/L ALT (4-49) U/L Alkaline Phosphatase 31 L (38-126) U/L Total Protein 5.4 L (6.2-8.2) g/dL Albumin 3.5 L (3.8-4.9) g/dL Serum Alcohol mg/dL Assessment and Plan Assessment: 1. Alcohol intoxication/pending withdrawal - Patient doesn't placed on IV fluid in form of normal saline at a rate of 1 30 mL an hour along with oral thiamine and folic acid 2. Possible drug overdose/altered mental status; likely with [place]; currently intoxicated also and remains on CIWA protocol with Librium 3. Suicidal ideation; questionable overdose with [place]; not clear how many tablets patient has taken; we will consult psych and continue with suicidal precautions 4. Transaminitis; likely related to EtOH abuse 5. Hyponatremia; sodium 147 at time of admission; patient isn't placed on IV fluids; we will monitor electrolytes closely and make adjustments accordingly 6. Depression; we will resume home dose of Wellbutrin once more awake and responsive 7. Chronic tobacco use; reenforced need for smoking cessation DVT prophylaxis; SCDs CODE STATUS; full code
--- NOTE | 2022-06-18 21:26 | P.PN ---
Subjective Progress Note Date: 06/18/22 Principal diagnosis: Alcohol intoxication Drug overdose Suicidal ideation 42-year-old male with a past medical history of alcohol use disorder presents to the emergency department for alcohol intoxication. Patient's girlfriend is at bedside and helps present history. States patient was having suicidal thoughts and before being brought to the emergency department he started drinking a lot of alcohol. Patient relapsed on alcohol 2 weeks ago. His girlfriend states he has been drinking half a gallon of liquor a day. Last drink was this afternoon. His girlfriend is also concerned patient took unknown drugs. Patient is very intoxicated during our conversation however states he took [place], unknown amount. Patient is apparently prescribed [place] for back pain. Prescription reports he does have history of delirium tremens and seizures from alcohol withdrawal. Patient denies fever, chills, shortness of breath, chest pain, abdominal pain, and other concerns Blood work completed in ED reveals WBC of 2.7, hemoglobin of 14.2 and platelet count of 240, sodium 147, potassium 4.9, BUN/creatinine of 14/0.80 and blood glucose 130; breath alcohol level of 0.39%; serum alcohol level of 475; AST/ALT elevated at 82/50 06/18/2022 Patient is seen and evaluated sitting up in bed; sedated at bedside; remains on scheduled Librium and has been requiring when necessary doses of Librium per [facility] protocol - Patient has been evaluated by psychiatry and is recommended inpatient psych evaluation once clinically stable - Remains on IV fluids, normal saline at rate of 130 mL an hour; continue with thiamine and folic acid; social work consult in place Objective - Vital Signs Vital signs: Vital Signs Temp 98.5 F 06/18/22 14:00 Pulse 71 06/18/22 14:00 Resp 17 06/18/22 14:00 BP 141/97 06/18/22 14:00 Pulse Ox 98 06/18/22 14:00 FiO2 Intake & Output 06/17/22 06/18/22 06/18/22 18:59 06:59 18:59 Intake Total 240 1560 Balance 240 1560 Intake: Intake, IV Titration 1560 Amount Sodium Chloride 0.9% 1, 1560 000 ml @ 130 mls/hr IV . Q7H42M [facility] Rx#:[id number] Oral 240 Other: Voiding Method Urinal Urinal # Voids 4 4 - Exam - Constitutional General appearance: Present: average body habitus, cooperative, no acute distress - EENT Eyes: Present: anicteric sclerae, EOMI, PERRLA, normal appearance ENT: Present: hearing grossly normal, normal oropharynx Ears: bilateral: normal - Neck Neck: Present: normal ROM. Absent: lymphadenopathy, rigidity, thyromegaly Carotids: negative: bruit present Thyroid: bilateral: normal size, negative: enlarged, nodule - Respiratory Respiratory: bilateral: CTA, negative: rales, rhonchi, wheezing - Cardiovascular Rhythm: regular Heart sounds: normal: S1, S2 Abnormal Heart Sounds: Absent: systolic murmur, diastolic murmur - Gastrointestinal General gastrointestinal: Present: normal bowel sounds, soft. Absent: distended, organomegaly, tenderness - Genitourinary Genitourinary Comment(s): deferred - Integumentary Integumentary: Present: normal turgor. Absent: jaundiced, rash, ulcer - Neurologic Neurologic: Present: CNII-XII intact. Absent: focal deficits - Musculoskeletal Musculoskeletal: Present: gait normal, strength equal bilaterally - Psychiatric Psychiatric: Present: A&O x's 3, appropriate affect, intact judgment & insight - Labs CBC & Chem 7: 06/17/22 06:36 06/18/22 06:20 Labs: Abnormal Lab Results - Last 24 Hours (Table) 06/18/22 Range/Units 06:20 Anion Gap 8.80 L (10.00-18.00) mmol/L Calcium 8.5 L (8.7-10.3) mg/dL Assessment and Plan Assessment: 1. Alcohol intoxication/pending withdrawal - Patient doesn't placed on IV fluid in form of normal saline at a rate of 1 30 mL an hour along with oral thiamine and folic acid 2. Possible drug overdose/altered mental status; likely with [place]; currently intoxicated also and remains on CIWA protocol with Librium 3. Suicidal ideation; questionable overdose with [place]; not clear how many tablets patient has taken; we will consult psych and continue with suicidal precautions 4. Transaminitis; likely related to EtOH abuse 5. Hyponatremia; sodium 147 at time of admission; patient isn't placed on IV fluids; we will monitor electrolytes closely and make adjustments accordingly 6. Depression; we will resume home dose of Wellbutrin once more awake and responsive 7. Chronic tobacco use; reenforced need for smoking cessation DVT prophylaxis; SCDs CODE STATUS; full code
[2022-06-18] MEDS: chlordiazePOXIDE 25 MG CAP PO SCH (22:28)
[2022-06-19] MEDS: IBUPROFEN 600 MG TAB PO PRN
[2022-06-19] MEDS: chlordiazePOXIDE 25 MG CAP PO PRN ×4 (00:06→15:30)
[2022-06-19] MEDS: SODIUM CHLORIDE 0.9% 1,000 ML IV SCH ×3 (06:16→12:51)
[2022-06-19 09:25] LABS: African American GFR (CKD) 128.6 (60.0-200.0); Anion Gap 9.5 mmol/L (10.00-18.00); BUN/Creat Ratio 17.25 Ratio (12.00-20.00); Blood Urea Nitrogen 13.8 mg/dL (9.0-27.0); Calcium 8.9 mg/dL (8.7-10.3); Carbon Dioxide 23.5 mmol/L (20.0-27.5)
[2022-06-19] MEDS: FOLIC ACID 1 MG TAB PO SCH (09:41)
[2022-06-19] MEDS: NICOTINE 14MG/24HR PATCH TRANSDERM SCH (09:41)
[2022-06-19] MEDS: THIAMINE 100 MG TAB PO SCH ×2 (09:41→16:11)
[2022-06-19] MEDS: PANTOPRAZOLE 40 MG TABLET PO SCH (09:41)
[2022-06-19] MEDS: chlordiazePOXIDE 25 MG CAP PO SCH ×3 (09:42→18:24)
[2022-06-19] MEDS: HYDROcodone/APAP 5-325MG 1 EACH TAB PO PRN ×2 (09:48→18:31)
[2022-06-19 14:53] VITALS: BP 101/57; PULSE 78; RESP 17; TEMP 97.8
--- NOTE | 2022-06-19 17:31 | P.DS ---
Providers Date of admission: 06/16/22 19:17 Expected date of discharge: 06/19/22 Attending physician: Shaheen Almanza Consults: 06/17/22 10:11 Consult Physician Routine Consulting Provider: Carlin Gregorio Consult Reason/Comments: suicidal thoughts Do you want consulting provider notified?: Yes Primary care physician: Shaheen Almanza Hospital Course: Final diagnosis -Alcohol intoxication/ acute delirium tremens -Possible drug overdose/altered mental status; likely with [place], present on admission -Suicidal ideation -Transaminitis; likely related to EtOH abuse -Hyponatremia -Depression -Chronic tobacco use -DVT prophylaxis; SCDs -full code Discharge disposition Patient is being transferred in a stable condition with guarded prognosis to [address] [place] [address] psychiatric unit. Patient will follow-up with pcp and [facility] in the outpatient setting upon discharge. Patient is to continue with librium taper on discharge. Total time taken is greater than 35 minutes. Hospital course This is a 42-year-old male who was recently admitted with acute alcohol intoxication and was maintained on Librium CIWA protocol. Patient currently sees Dr. Almanza as his pcp although currently working on a new provider. Patient follows with [facility] outpatient. Patient reported to having suicidal ideation. Currently no reports of chest pain, shortness of breath, or palpitations. Patient is afebrile. No reports of nausea or vomiting and patient is tolerating diet. Patient will be transferred to [address] [place] [address] once a bed becomes available. Physical exam:. Gen: This is a 42 year old male, awake, alert and orineted x3. well developed, well nourished HEENT: Head is atraumatic, normocephalic. Pupils equal, round. Sclerae is anicteric. NECK: Supple. No JVD. No lymphadenopathy. No thyromegaly. LUNGS: Clear to auscultation. No wheezes or rhonchi. No intercostal retractions. HEART: Regular rate and rhythm. No murmur. ABDOMEN: Soft. Bowel sounds are present. No masses. No tenderness. EXTREMITIES: No pedal edema. No calf tenderness. NEUROLOGICAL: Patient is awake, alert and oriented x3. Cranial nerves 2 through 12 are grossly intact. Please refer to medication reconciliation sheet for a list of medications. The impression and plan of care has been dictated by Elaine Hardin, Nurse Practitioner as directed. Dr. Matt MD I have performed a history and examination and MDM of this patient, discussed the same with the dictator, and agree with the dictator's assessment and plan as written ,documented as a scribe. Based on total visit time, I have performed more than 50% of the visit. Patient Condition at Discharge: Fair Plan - Discharge Summary Discharge Rx Participant: Yes New Discharge Prescriptions: New Folic Acid 0.5 mg PO DAILY tab Nicotine 14Mg/24Hr Patch [Habitrol] 1 patch TRANSDERM DAILY patch chlordiazePOXIDE HCl [Librium] 50 mg PO Q4H PRN cap PRN Reason: CIWA 6 to 7 chlordiazePOXIDE HCl [Librium] 25 mg PO Q4H PRN cap PRN Reason: CIWA 4 to 5 Ibuprofen [Motrin] 600 mg PO Q6HR PRN tab PRN Reason: Pain Pantoprazole [Protonix] 40 mg PO AC-BRKFST tab Calcium Carbonate [Tums] 500 mg PO Q4HR PRN tab PRN Reason: Heartburn Thiamine [Vitamin B-1] 100 mg PO BID-W/MEALS tab Continue buPROPion SR [Wellbutrin SR] 150 mg PO BID Hydrocodone/Acetaminophen [Hydrocodone/Acetaminophen 5-325] 1 tab PO BID PRN PRN Reason: Pain Discharge Medication List buPROPion SR [Wellbutrin SR] 150 mg PO BID 03/15/22 [History] Hydrocodone/Acetaminophen [Hydrocodone/Acetaminophen 5-325] 1 tab PO BID PRN 06/16/22 [History] Calcium Carbonate [Tums] 500 mg PO Q4HR PRN tab 06/19/22 [Rx] Folic Acid 0.5 mg PO DAILY tab 06/19/22 [Rx] Ibuprofen [Motrin] 600 mg PO Q6HR PRN tab 06/19/22 [Rx] Nicotine 14Mg/24Hr Patch [Habitrol] 1 patch TRANSDERM DAILY patch 06/19/22 [Rx] Pantoprazole [Protonix] 40 mg PO AC-BRKFST tab 06/19/22 [Rx] Thiamine [Vitamin B-1] 100 mg PO BID-W/MEALS tab 06/19/22 [Rx] chlordiazePOXIDE HCl [Librium] 25 mg PO Q4H PRN cap 06/19/22 [Rx] chlordiazePOXIDE HCl [Librium] 50 mg PO Q4H PRN cap 06/19/22 [Rx] Follow up Appointment(s)/Referral(s): Allie Dewey MD [STAFF PHYSICIAN] - 1 Week Activity/Diet/Wound Care/Special Instructions: Patient is medically clear and stable for transfer to inpatient psychiatric unit for further evaluation Discharge Disposition: TRANSFER TO PSYCH HOSP/UNIT
--- NOTE | 2022-06-20 21:45 | DS ---
DISCHARGE SUMMARY DATE OF DISCHARGE: 06/19/2022 CHIEF COMPLAINT: Acute alcohol intoxication and DTs with depression and suicidal intent. HISTORY OF PRESENT ILLNESS AND PHYSICAL EXAMINATION: Details of this man's history and physical can be found in the initial workup. LABORATORY STUDIES: While he was in the hospital he had laboratory studies, details of which can be found in the laboratory section of his chart. COURSE IN THE HOSPITAL: After admission he was placed on bedrest, started on intravenous fluids and placed on CIWA protocol. He was seen by Psychiatry and it was felt that he was enough of a threat to himself that he should be transferred to the psych service, and this was arranged on June 20. FINAL DIAGNOSIS: 1. Acute alcohol intoxication. 2. Chronic alcoholism. 3. Alcoholic hepatitis. 4. Delirium tremens. 5. Major depression. 6. Suicidal personality. OPERATIONS: None. CONSULTATION: Psychiatry. He is improved. MMODL / IJN: [id number] /
== END 2022-06-19 19:45 | disposition left against medical advice (07) ==
LOC: EC 16:25 → 4SSUR 19:17
PROVIDERS: ADMIT Family Medicine; ATTEND Family Medicine
DX: F10.221 Alcohol dependence with intoxication delirium (principal); F10.239 Alcohol dependence with withdrawal, unspecified; F10.24 Alcohol dependence with alcohol-induced mood disorder; Y90.8 Blood alcohol level of 240 mg/100 ml or more; R45.851 Suicidal ideations; F13.10 Sedative, hypnotic or anxiolytic abuse, uncomplicated; E87.1 Hypo-osmolality and hyponatremia; F32.9 Major depressive disorder, single episode, unspecified; K70.10 Alcoholic hepatitis without ascites; E07.9 Disorder of thyroid, unspecified; Z86.14 Personal history of Methicillin resistant Staphylococcus aureus infection; F17.200 Nicotine dependence, unspecified, uncomplicated; Z79.899 Other long term (current) drug therapy; Z91.040 Latex allergy status; Z91.09 Other allergy status, other than to drugs and biological substances
CPT/HCPCS: 96361 ×5; 82075; 96360; 96372; 99284; 36415; 80053; 80048 ×3; 80076; 85025 ×2; 81003; 80306; G0378 ×4; G0480; S4990 ×2; J3411; 80320

== ENCOUNTER 2022-06-19 22:22 | Inpatient (IN) | payer MEDICAID, OTHER ==
--- NOTE | 2022-06-19 22:47 | ED ---
Psych HPI - General Chief Complaint: Psychiatric Symptoms Stated Complaint: Mental health Time Seen by Provider: 06/19/22 22:36 Source: patient, RN notes reviewed Mode of arrival: ambulatory - History of Present Illness Initial Comments: She was seen here a few days ago with alcohol intoxication and suicidal thoughts. Patient apparently was held quite some time here in the emergency department. Ended up seeing Dr. Andrade from psychiatry. Was made for continued detox protocol as well as transfer to [facility]. The shunt was getting frustrated and how long everything was taking ended up leaving AGAINST MEDICAL ADVICE. Patient is back after continuing to have suicidal thoughts. No current specific plan but states a few days ago he was actually thinking about cutting his wrists. Patient here voluntarily and wants to go to the psychiatric floor. Patient denying any alcohol intake or illicit drug abuse within the last 24 hours. Last alcoholic drink was on Sunday. Patient's denying any other symptomology. No headache, no fever or chills, no changes in vision or hearing, no sore throat or difficulty with speech, no neck pain, no chest pain or shortness of breath, no abdominal pain, no nausea or vomiting, no changes in urination or bowel movements, no numbness or tingling, no extremity pain, no skin rashes or lesions. Past medical, surgical, social, and family history reviewed. MD Complaint: suicidal ideation - Related Data Home Medications Medication Instructions Recorded Confirmed buPROPion SR [Wellbutrin SR] 150 mg PO BID 03/15/22 06/19/22 Hydrocodone/Acetaminophen 1 tab PO BID PRN 06/16/22 06/19/22 [Hydrocodone/Acetaminophen 5-325] Previous Rx's Medication Instructions Recorded Calcium Carbonate [Tums] 500 mg PO Q4HR PRN tab 06/19/22 Folic Acid 0.5 mg PO DAILY tab 06/19/22 Ibuprofen [Motrin] 600 mg PO Q6HR PRN tab 06/19/22 Nicotine 14Mg/24Hr Patch [Habitrol] 1 patch TRANSDERM DAILY patch 06/19/22 Pantoprazole [Protonix] 40 mg PO AC-BRKFST tab 06/19/22 Thiamine [Vitamin B-1] 100 mg PO BID-W/MEALS tab 06/19/22 chlordiazePOXIDE HCl [Librium] 25 mg PO Q4H PRN cap 07/25/22 chlordiazePOXIDE HCl [Librium] 50 mg PO Q4H PRN cap 06/19/22 Allergies Allergy/AdvReac Type Severity Reaction Status Date / Time nickel Allergy Rash/Hives Verified 06/19/22 22:28 latex AdvReac Rash/Hives Verified 06/19/22 22:28 Review of Systems ROS Statement: Those systems with pertinent positive or pertinent negative responses have been documented in the HPI. ROS Other: All systems not noted in ROS Statement are negative. Past Medical History Past Medical History: Thyroid Disorder History of Any Multi-Drug Resistant Organisms: MRSA Date of last positivie culture/infection: 2012 MDRO Source:: rt FA Past Surgical History: Orthopedic Surgery Additional Past Surgical History / Comment(s): nerurologist chronic back pain Past Psychological History: Depression Smoking Status: Current every day smoker Past Alcohol Use History: Daily Past Drug Use History: Marijuana General Exam Limitations: no limitations General appearance: alert, in no apparent distress Head exam: Present: atraumatic, normocephalic, normal inspection Eye exam: Present: normal appearance, PERRL, EOMI. Absent: scleral icterus, conjunctival injection, periorbital swelling ENT exam: Present: normal exam, mucous membranes moist Neck exam: Present: normal inspection. Absent: tenderness, meningismus, lymphadenopathy Respiratory exam: Present: normal lung sounds bilaterally. Absent: respiratory distress, wheezes, rales, rhonchi, stridor Cardiovascular Exam: Present: regular rate, normal rhythm, normal heart sounds. Absent: systolic murmur, diastolic murmur, rubs, gallop, clicks GI/Abdominal exam: Present: soft, normal bowel sounds. Absent: distended, tenderness, guarding, rebound, rigid Extremities exam: Present: normal inspection, full ROM, normal capillary refill. Absent: tenderness, pedal edema, joint swelling, calf tenderness Back exam: Present: normal inspection Neurological exam: Present: alert, oriented X3, CN II-XII intact Psychiatric exam: Present: normal affect, normal mood Skin exam: Present: warm, dry, intact, normal color. Absent: rash, cyanosis, diaphoretic Course Vital Signs 06/19/22 22:24 Temperature 98 F Pulse Rate 101 H Respiratory 20 Rate Blood Pressure 122/89 O2 Sat by Pulse 100 Oximetry - Reevaluation(s) Reevaluation #1: 07/26/22 01:13 Medical record is reviewed Symptoms are unchanged Patient is informed of results and questions answered Patient in no distress Medical Decision Making - Medical Decision Making Discussed with the transit survey worker who suggested something for alcohol withdrawal and anxiety. 10 mg of Valium ordered. Awaiting discussion with the psychiatrist for admission to [facility]. - Lab Data Lab Results 06/19/22 06/19/22 06/19/22 Range/Units 23:26 23:27 23:27 Urine Color Yellow Urine Appearance Clear (Clear) Urine pH 6.0 (5.0-8.0) Ur Specific [place] 1.020 (1.001-1.035) Urine Protein Negative (Negative) Urine Glucose (UA) Negative (Negative) Urine Ketones Negative (Negative) Urine Blood Negative (Negative) Urine Nitrite Negative (Negative) Urine Bilirubin Negative (Negative) Urine Urobilinogen <2.0 (<2.0) mg/dL Ur Leukocyte Esterase Negative (Negative) Urine Opiates Screen Detected H (NotDetected) Ur Oxycodone Screen Not Detected (NotDetected) Urine Methadone Screen Not Detected (NotDetected) Ur Propoxyphene Screen Not Detected (NotDetected) Ur Barbiturates Screen Not Detected (NotDetected) U Tricyclic Antidepress Not Detected (NotDetected) Ur Phencyclidine Scrn Not Detected (NotDetected) Ur Amphetamines Screen Not Detected (NotDetected) U Methamphetamines Scrn Not Detected (NotDetected) U Benzodiazepines Scrn Detected H (NotDetected) Urine Cocaine Screen Not Detected (NotDetected) U Marijuana (THC) Screen Detected H (NotDetected) Coronavirus (PCR) Not Detected (Not Detectd) Disposition Clinical Impression: Depression, Acute anxiety, Suicidal ideation Disposition: ADMITTED IP TO THIS [facility] Condition: Stable Referrals: Shaheen Almanza MD [Primary Care Provider] - 1-2 days Time of Disposition: 03:24
[2022-06-19 23:34] LABS: Appearance,Urine Clear (Clear); Bilirubin,Urine Negative (Negative); Blood,Urine Negative (Negative); Color,Urine Yellow; Glucose,Urine (UA) Negative (Negative); Ketones,Urine Negative (Negative); Leukocyte Esterase,Urine Negative (Negative); Nitrite,Urine Negative (Negative); Protein,Urine Negative (Negative); Urobilinogen,Urine <2.0 mg/dL (<2.0)
[2022-06-20] MEDS ORDERED: diazePAM 5 MG TAB PO STA ×2 (01:12→03:23)
[2022-06-20 02:21] LABS: Amphetamine Screen,Urine Not Detected (NotDetected); Barbiturate Screen,Urine Not Detected (NotDetected); Benzodiazepines Screen,Urine Detected (NotDetected); Cocaine Screen,Urine Not Detected (NotDetected); Methadone Screen, Urine Not Detected (NotDetected); Opiate Screen,Urine Detected (NotDetected); Oxycodone Screen, Urine Not Detected (NotDetected); Phencyclidine Screen,Urine Not Detected (NotDetected); Tricyclic Antidepressant,Urine Not Detected (NotDetected); Urn Cannabinoid Scrn Detected (NotDetected)
[2022-06-20] MEDS ORDERED: hydrOXYzine HCL 50 MG/ML 1 ML VIAL IM STA (03:22)
[2022-06-20] MEDS ORDERED: MAG HYDROX/AL HYDROX/SIMETH 30 ML CUP PO PRN (03:33)
[2022-06-20] MEDS ORDERED: ACETAMINOPHEN TAB 325 MG TAB PO PRN (03:33)
[2022-06-20] MEDS ORDERED: LORazepam 1 MG TAB PO PRN ×2 (03:33)
[2022-06-20] MEDS ORDERED: MAGNESIUM HYDROXIDE 2,400 MG/10 ML CUP PO PRN (03:33)
[2022-06-20] MEDS ORDERED: haloperidoL 5 MG TAB PO PRN (03:41)
[2022-06-20] MEDS ORDERED: HALOPERIDOL LACTATE 5 MG/ML 1 ML VIAL IM PRN (03:41)
[2022-06-20] MEDS ORDERED: THIAMINE 100 MG TAB PO SCH (09:00)
[2022-06-20] MEDS ORDERED: diazePAM 5 MG TAB PO SCH (09:00)
[2022-06-20] MEDS ORDERED: chlordiazePOXIDE 25 MG CAP PO SCH (09:00)
[2022-06-20] MEDS: MULTIVITAMINS, THERA 1 EACH TAB PO SCH (09:31)
[2022-06-20] MEDS: NICOTINE 14MG/24HR PATCH TRANSDERM SCH (09:31)
[2022-06-20] MEDS: FOLIC ACID 1 MG TAB PO SCH (09:31)
[2022-06-20] MEDS ORDERED: chlordiazePOXIDE 25 MG CAP PO PRN ×2 (10:20)
[2022-06-20] MEDS ORDERED: CALCIUM CARBONATE 500 MG CHEWABLE PO PRN (10:20)
--- NOTE | 2022-06-20 12:07 | P.HP ---
Psychiatric H&P - . H&P Date: 06/20/22 History & Physical: Allergies Allergy/AdvReac Type Severity Reaction Status Date / Time nickel Allergy Rash/Hives Verified 06/20/22 03:44 latex AdvReac Rash/Hives Verified 06/20/22 03:44 Vital Signs Temp 96.8 F L 06/20/22 04:07 Pulse 77 06/20/22 08:00 Resp 15 06/20/22 04:07 BP 111/60 06/20/22 08:00 Pulse Ox 95 06/20/22 04:07 FiO2 Intake & Output 06/19/22 06/20/22 06/20/22 18:59 06:59 18:59 Weight 95.311 kg Laboratory Last Values Estimated Ave Glu mg/dL 113 06/16/22 06:00 Hemoglobin A1c 5.6 % (0.0-6.0) 06/16/22 06:00 TSH 1.360 mIU/L (0.465-4.680) 06/16/22 06:00 Urine Color Yellow 06/19/22 23:27 Urine Appearance Clear (Clear) 06/19/22 23: Urine pH 6.0 (5.0-8.0) 06/19/22 23: Ur Specific [place] 1.020 (1.001-1.035) 06/19/22 23: Urine Protein Negative (Negative) 06/19/22 23: Urine Glucose (UA) Negative (Negative) 06/19/22 23:27 Urine Ketones Negative (Negative) 06/19/22 23: Urine Blood Negative (Negative) 06/19/22 23: Urine Nitrite Negative (Negative) 06/19/22 23: Urine Bilirubin Negative (Negative) 06/19/22 23: Urine Urobilinogen <2.0 mg/dL (<2.0) 06/19/22 23:27 Ur Leukocyte Esterase Negative (Negative) 06/19/22 23:27 Urine Opiates Screen Detected (NotDetected) H 06/19/22 23:27 Ur Oxycodone Screen Not Detected (NotDetected) 06/19/22 23:27 Urine Methadone Screen Not Detected (NotDetected) 06/19/22 23:27 Ur Propoxyphene Screen Not Detected (NotDetected) 06/19/22 23:27 Ur Barbiturates Screen Not Detected (NotDetected) 06/19/22 23:27 U Tricyclic Antidepress Not Detected (NotDetected) 06/19/22 23: Ur Phencyclidine Scrn Not Detected (NotDetected) 06/19/22 23:27 Ur Amphetamines Screen Not Detected (NotDetected) 06/19/22 23: U Methamphetamines Scrn Not Detected (NotDetected) 06/19/22 23: U Benzodiazepines Scrn Detected (NotDetected) H 06/19/22 23:27 Urine Cocaine Screen Not Detected (NotDetected) 06/19/22 23: U Marijuana (THC) Screen Detected (NotDetected) H 06/19/22 23:27 Coronavirus (PCR) Not Detected (Not Detectd) 06/19/22 23:26 06/20/22 11:49 IDENTIFYING DATA AND REASON FOR CONSULT: The patient is a 42-year-old single male, 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 engaged. lives in apartment. no kids. PERTINENT PSYCHIATRIC HISTORY: Patient was seen today for psych evaluation. Patient was recently admitted to the med floors for DTs and etoh withdrawal and was seen by Dr Andrade for psych eval and was supposed to be transferred to however signed AMA. Patient came back to the Er shortly afterwards with his father complaining of etoh use, dep and SI. as per DrGrbabowskis CL evaluation "He acknowledged that he was having thoughts of suicide and wondered whether the combination of his drinking and use of clonazepam was a suicide attempt. He perseverated about his antidepressant Wellbutrin and wondered whether this the antidepressant was causing his suicidal thoughts or was no longer effective in treating his depression. It addition, he complained of recurrent problems with anxiety. He has long history of alcohol use problems with multiple rehabilitation admissions. He was vague about the pattern of use but alleged that his alcohol use increase sometime last week. He usually begins drinking in the morning before he goes to work and then resumes drinking when he returns home. He drink of choice is either vodka or liquor. He has been purchasing Klonopin on the [employer] market that he reportedly is using to treat withdrawal symptoms when he cannot drink. He has taken Klonopin while he was drinking. He described feelings of depression and intermittent thoughts of suicide. He denied specific suicidal intent or plan. I was unable to clearly obtain a history of whether he had attempted suicide in the past. He described free- floating anxiety but I was unable to separate subjective anxiety from alcohol withdrawal symptoms. He denied experiencing psychotic symptoms such as confusion, hallucinations or paranoia. He denied the use of other drugs such as heroin, cocaine or methamphetamine. He is prescribed [place] for the treatment of chronic back pain." Patient today continues to endorse depression and anxiety, he states that he was frustrated with Dr Almanza and him not being discharged. He states that his antipressant isnt helping him and wants a new one. He cont inues to state that he has elevated anxiety, depression. He states t hat he is irritated and hopeless. Denies any current SI or HI and denies any AH or VH. He states that his sleep is "on and off". appetite fair. claims he drinks about a pint of vodka/day, cigarettes. denies any other rec drug use. PAST PSYCHIATRIC AND/OR SUBSTANCE USE HISTORY: He has had 4 residential substance abuse treatment episode. His longest period of sobriety was following his first admission to [facility]. He had occasional telehealth meetings with a substance abuse counselor at [facility]. He did not follow through with the recommendation to begin their outpatient substance abuse treatment group. He denied psychiatric hospitalizations. He has not met with a psychiatrist or therapist outside of a substance abuse treatment program. He denied that he experienced alcohol withdrawal delirium or seizures. SOCIAL HISTORY: He is high school graduate. He is single and has no children. He has a fiance with whom he has a close and supportive relationship. 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 MENTAL STATUS EXAM: He presented as a 42-year-old disheveled appearing male who was pleasant on approach. poor eye contact. He had no distinguishing features or prominent physical abnormalities. He had a sad facial expression. He was alert and oriented to person, place and time. He showed psychomotor retardation but no abnormal involuntary movements. His speech was spontaneous with markedly decreased rate, volume and rhythm. His affect was depressed and not reactive. Denied homicidal ideation. He expressed feelings of hopelessness, helplessness and worthlessness particularly with regard to his uncontrolled alcohol use. He ruminated over some alcohol use and need for mental health treatment. He did not express ideas reference, paranoid ideation or delusions. His thinking was concrete but his associations record, logical and goal directed. He denied hallucinations did not appear to be responding to internal stimuli. Global impression of intellect is average. He is aware of his illness and need for treatment. DIAGNOSIS: Major depressive disorder without psychotic features Alcohol use disorder, severe benzodiazepine use disorder nicotine dependence STRENGTHS/WEAKNESSES: strength is that patient is resilient. Weakness is that patient has poor judgment and is impulsive INTELLECT: average PLAN: -Patient is admitted under voluntary status to [facility] for stabilization of psychiatric symptoms and safety. Patient has signed adult voluntary form and [facility] consent and is placed in patient's chart. -Medications : Will start patient on Prozac 20 mg daily for mood/anxiety, trazodone 50 mg daily at bedtime for insomnia/mood. Decrease Librium to 20 mg 3 times a day for alcohol withdrawal. -Ativan and Haldol PRN for agitation/aggression -Started thiamine, MVM for etoh use -CIWA protocol with Ativan PRN for ETOH withdrawal -Patient was counselled on substance abuse and desired to cut back on use the patient is not interested in rehab at this time. -Patient was informed of the risks, benefits and side effects of the medication and patient verbally consented to taking the medications. Patient signed med consent form and was placed in chart. -Internal Medicine consult to perform medical evaluation and physical. -NRT - nicotine patch -SW on board for discharge planning. Encourage patient to participate in groups to work on coping skills.
[2022-06-20] MEDS: FLUoxetine HCL 20 MG CAP PO SCH (13:06)
[2022-06-20] MEDS: IBUPROFEN 600 MG TAB PO PRN ×2 (13:14→21:08)
--- NOTE | 2022-06-20 14:48 | P.MDCNMH ---
History of Present Illness H&P Date: 06/20/22 This is a pleasant 42-year-old male who presented to the emergency department with feelings of suicidal ideation, increased depression and acute alcohol intoxication. Patient was maintained on the medical unit on CIWA protocol with Librium taper. Patient did have a suicide sitter at the bedside as patient reported suicidal ideations with no reports of wanting to harm others. Patient admits to drinking and smoking along with marijuana use. Per girlfriend there was thoughts of possible overdose on [place]. Urine drug screen was positive for opiates, benzos, and marijuana. Covid testing was negative. Patient was seen and evaluated by psychiatry on the medical floor and was voluntarily wanting to go to the psychiatric unit to adjust medications and possibly wean off Wellbutrin. Review Of Systems: Constitutional: No fever, no chills, no night sweats. No weight change. No weakness, fatigue or lethargy. No daytime sleepiness. EENT: No headache. No blurred vision or double vision, no loss of vision. No loss of Hearing, no ringing in the ears, no dizziness. No nasal drainage or congestion. No epistaxis. No sore throat. Lungs: No shortness of breath, cough, no sputum production. No wheezing. Cardiovascular: No chest pain, no lower extremity edema. No palpitations. No paroxysmal nocturnal dyspnea. No orthopnea. No lightheadedness or dizziness. No syncopal episodes. Abdominal: No abdominal pain. No nausea, vomiting. No diarrhea. No constipation. No bloody or tarry stools.. No loss of appetite. Genitourinary: No dysuria, increased frequency, urgency. No urinary retention. Musculoskeletal: No myalgias. No muscle weakness, no gait dysfunction, no frequent falls. No back pain. No neck pain. Integumentary: No wounds, no lesions. No rash or pruritus. No unusual bruising. No change in hair or nails. Neurologic: No aphasia. No facial droop. No change in mentation. No head injury. No headache. No paralysis. No paresthesia. Psychiatric: Reports depression. Reports increased anxiety. Reports occasional mood swings. Reports feelings of being suicidal Endocrine: No abnormal blood sugars. No weight change. No excessive sweating or thirst. No cold intolerance. PHYSICAL EXAMINATION: GENERAL: The patient is alert and oriented x4, Well developed, well nourished. HEENT: Pupils are round and equally reacting to light. EOMI. no scleral icterus. No conjunctival pallor. Normocephalic, atraumatic. No pharyngeal erythema. No thyromegaly. CARDIOVASCULAR: S1 and S2 muffled PULMONARY: Breath sounds are clear with no wheezing or rhonchi noted ABDOMEN: soft. Nontender on exam. obese. non-distended, normoactive bowel sounds. No palpable organomegaly. MUSCULOSKELETAL: No joint swelling or deformity. EXTREMITIES: No cyanosis, clubbing, or pedal edema. NEUROLOGICAL: Gross neurological examination did not reveal any focal deficits. SKIN: No rashes. Assessment: Recent hospitalization secondary to alcohol intoxication Early delirium tremens Depression Suicidal ideation Transaminitis Continued ongoing alcohol abuse Continued ongoing nicotine abuse Marijuana use Recent urinary tract infection, started on antibiotics in the outpatient setting Continued ongoing nicotine abuse Positive cocaine in urine drug screen History of kidney stones History of PCO S Full code Plan: Recommend to continue with current medications and management per psychiatric services. Patient was following with Dr. Almanza in the outpatient setting al though is currently working on finding another primary care provider. Patient was recently hospitalized for alcohol intoxication with acute early delirium tremens. Patient also having suicidal ideation with possible overdose on [place]. Patient reports to feeling suicidal and is currently on Wellbutrin and would like to wean off and adjust medications. Patient encouraged to follow-up with community mental health in the outpatient setting along with resources provided for primary care providers to establish with. Patient does smoke and recommend nicotine patch and resuming appropriate home medications. Encourage the patient to continue with group meetings and further psychiatric evaluation. Recommend Librium taper to continue and monitor for any alcohol withdrawal signs. The impression and plan of care has been dictated by Elaine Hardin, nurse practitioner as directed. MD Cori I have performed a history and examination and MDM of this patient, discussed the same with the dictator, and agree with the dictator's assessment and plan as written ,documented as a scribe. Based on total visit time, I have performed more than 50% of the visit. Any additional findings or plans will be noted. Past Medical History Past Medical History: Thyroid Disorder History of Any Multi-Drug Resistant Organisms: MRSA Date of last positivie culture/infection: 2012 MDRO Source:: rt FA Past Surgical History: Orthopedic Surgery Additional Past Surgical History / Comment(s): nerurologist chronic back pain Past Psychological History: Depression Smoking Status: Current every day smoker Past Alcohol Use History: Abuse, Daily, Heavy Past Drug Use History: Marijuana Medications and Allergies Home Medications Medication Instructions Recorded Confirmed Type buPROPion SR [Wellbutrin SR] 150 mg PO BID 03/15/22 06/20/22 History Hydrocodone/Acetaminophen 1 tab PO BID PRN 06/16/22 06/20/22 History [Hydrocodone/Acetaminophen 5-325] Calcium Carbonate [Tums] 500 mg PO Q4HR PRN tab 06/19/22 06/20/22 Rx Folic Acid 0.5 mg PO DAILY tab 06/19/22 06/20/22 Rx Ibuprofen [Motrin] 600 mg PO Q6HR PRN tab 06/19/22 06/20/22 Rx Nicotine 14Mg/24Hr Patch [Habitrol] 1 patch TRANSDERM DAILY patch 06/19/22 06/20/22 Rx Pantoprazole [Protonix] 40 mg PO AC-BRKFST tab 06/19/22 06/20/22 Rx Thiamine [Vitamin B-1] 100 mg PO BID-W/MEALS tab 06/19/22 06/20/22 Rx chlordiazePOXIDE HCl [Librium] 25 mg PO Q4H PRN cap 06/19/22 06/20/22 Rx chlordiazePOXIDE HCl [Librium] 50 mg PO Q4H PRN cap 06/19/22 06/20/22 Rx Allergies Allergy/AdvReac Type Severity Reaction Status Date / Time nickel Allergy Rash/Hives Verified 06/20/22 03:44 latex AdvReac Rash/Hives Verified 06/20/22 03:44 Physical Exam Vitals: Vital Signs Temp Pulse Pulse Resp BP BP Pulse Ox 06/20/22 04:07 96.8 F L 72 15 110/81 95 06/19/22 22:24 98 F 101 H 20 122/89 100 Intake and Output 06/19/22 06/20/22 06/20/22 22:59 06:59 14:59 Other: Weight 95.254 kg 95.311 kg Cranial Nerve Examination - Cranial Nerves Cranial Nerve I- Olfactory: Intact Cranial Nerve II- Optic: Intact Cranial Nerve III- Oculomotor: Intact Cranial Nerve IV- Trochlear: Intact Cranial Nerve V- Trigeminal: Intact Cranial Nerve - Abducens: Intact Cranial Nerve VII- Facial: Intact Cranial Nerve VIII- Auditory: Intact Cranial Nerve IX- Glossopharyngeal: Intact Cranial Nerve X- Vagus: Intact Cranial Nerve XI- Accessory: Intact Cranial Nerve XII- Hypoglossal: Intact Results Labs: Abnormal Lab Results - Last 24 Hours (Table) 06/19/22 Range/Units 23:27 Urine Opiates Screen Detected H (NotDetected) U Benzodiazepines Scrn Detected H (NotDetected) U Marijuana (THC) Screen Detected H (NotDetected)
[2022-06-20] MEDS: HYDROcodone/APAP 5-325MG 1 EACH TAB PO PRN (15:08)
[2022-06-20] MEDS: THIAMINE 100 MG TAB PO SCH (16:42)
--- NOTE | 2022-06-20 20:36 | CONS ---
CONSULTATION CHIEF COMPLAINT: Acute alcohol intoxication, chronic alcoholism, major depression, COPD and suicidal thoughts. HISTORY OF PRESENT ILLNESS: This gentleman was transferred from the medical floor for psychiatric care. He was admitted for acute alcohol intoxication and moved to the psych floor because he was suicidal. At the present time he is lethargic and still somewhat intoxicated. He denies chest pain, abdominal pain, vomiting, hematemesis, melena, hematochezia, etc. Past medical history, family history, and personal and social histories demonstrate that he is NOT ALLERGIC TO ANY MEDICATIONS. He has not been seen in the office since February 09, which was for his annual visit. At that time he was on Wellbutrin, naproxen, BuSpar, baclofen, tizanidine and Vicodin for his back. 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 He also smokes heavily. PHYSICAL EXAMINATION: Blood pressure 140/90 with a pulse of 90, respirations of 35, and he is afebrile. At the present time he is somewhat lethargic. Head, ears, eyes, nose, mouth and throat reveal injection of the sclerae. Pupils are round and gaze is conjugate. Neck veins are not distended. Chest is clear. Cardiac exam demonstrates sinus rhythm. Abdomen is flat, soft and nontender. Extremities are normal. Neurologically he is intact. He is not tremulous at this time. He does not have diplopia. He is admitted to the psych floor with the diagnoses: 1. Major depression with suicidal thoughts. 2. Chronic alcoholism. 3. Acute alcohol intoxication. 4. Chronic obstructive pulmonary disease. 5. Conjunctivitis. RECOMMENDATIONS: None. MMODL / IJN: [id number] /
[2022-06-20] MEDS: traZODone HCL 50 MG TAB PO SCH (21:08)
[2022-06-21] MEDS: NICOTINE 14MG/24HR PATCH TRANSDERM SCH (08:02)
[2022-06-21] MEDS: THIAMINE 100 MG TAB PO SCH ×2 (08:03→17:34)
[2022-06-21] MEDS: FOLIC ACID 1 MG TAB PO SCH (08:03)
[2022-06-21] MEDS: FLUoxetine HCL 20 MG CAP PO SCH (08:03)
[2022-06-21] MEDS: PANTOPRAZOLE 40 MG TABLET PO SCH (08:03)
[2022-06-21] MEDS: MULTIVITAMINS, THERA 1 EACH TAB PO SCH (08:03)
[2022-06-21] MEDS: HYDROcodone/APAP 5-325MG 1 EACH TAB PO PRN ×2 (08:04→17:34)
[2022-06-21] MEDS ORDERED: FOLIC ACID 1 MG TAB PO SCH (09:00)
[2022-06-21] MEDS ORDERED: NICOTINE 14MG/24HR PATCH TRANSDERM SCH (09:00)
--- NOTE | 2022-06-21 15:07 | P.PN ---
Progress Note - Text Progress Note Date: 06/21/22 Interval History: Patient was seen wandering the hallways and was directable and agreeable to darrin palafox with fiction writer in the office. Patient appears to have improvement in his hygiene and grooming today. He states that his withdrawal symptoms from alcohol and getting better. He states that he was able to sleep much better last night with trazodone which she is thankful for. He continues to claim that he is having anxiety during the day and still was feeling depressed earlier this morning. He claims that the Prozac has been helping however was agreeable to having increased today. He states that he believes that his girlfriend may have lied about him possibly overdosing which she does not remember. He was asking about potential discharge soon and discharge planning. Improving appetite. At this time patient denies any suicidal or homical ideations, intent or plan. Patient denies any auditory, visual hallucinations and denies any paranoia or delusions. Patient denies any side effects from the medications and has been compliant with meds. Mental Status Exam: General Appearance: Patient appears to be tall, thin, stated age is alert, directable, and attempts to be cooperative. Improving hygiene and grooming Behavior: Patient is calmly seated without any agitated behavior. More cooperative today. Speech: Patient's speech is fluent and nonpressured. Rambles at times. Mood/Affect: Mood is improving mildly still having significant anxiety, affect is congruent and constricted. Suicidality/Homicidality: Patient denies having any suicidal or homicidal ideation intent or plan. Perceptions: Patient denies any visual hallucinations and denies any auditory hallucinations Though content/process: There is no evidence of any delusional thought content and thought process is linear and goal-directed. Rambles at times. Focused on pain medications. Memory and concentration: AOX3, grossly intact for the purposes of this session Judgment and insight: Improving mildly Assessment Major depressive disorder without psychotic features Alcohol use disorder, severe benzodiazepine use disorder nicotine dependence Plan: -Patient continues to meet criteria for inpatient psychiatric admission for symptom stabilization and safety. Patient has signed adult voluntary form and me dication consent and was placed in patient's chart. -Medications: increase Prozac 40 mg daily for mood/anxiety, trazodone 50 mg daily at bedtime for insomnia/mood. Decrease Librium to 10 mg 3 times a day for alcohol withdrawal. -thiamine, MVM for etoh use -CIWA protocol with Ativan PRN for ETOH withdrawal -When necessary Ativan and Haldol for agitation/aggression. -NRT - nicotine patch -SW on board for discharge planning. Encouraged the patient to participate in milieu. He states that he is not interested in rehab at this time. Likely discharge in 1-2 days.
[2022-06-21] MEDS: traZODone HCL 50 MG TAB PO SCH (20:58)
[2022-06-22] MEDS: FOLIC ACID 1 MG TAB PO SCH (08:26)
[2022-06-22] MEDS: FLUoxetine HCL 20 MG CAP PO SCH (08:26)
[2022-06-22] MEDS: MULTIVITAMINS, THERA 1 EACH TAB PO SCH (08:26)
[2022-06-22] MEDS: THIAMINE 100 MG TAB PO SCH ×2 (08:26→17:56)
[2022-06-22] MEDS: NICOTINE 14MG/24HR PATCH TRANSDERM SCH (08:26)
[2022-06-22] MEDS: PANTOPRAZOLE 40 MG TABLET PO SCH (08:26)
[2022-06-22] MEDS: HYDROcodone/APAP 5-325MG 1 EACH TAB PO PRN ×2 (08:30→17:56)
--- NOTE | 2022-06-22 09:04 | P.PN ---
Progress Note - Text Progress Note Date: 06/22/22 Interval History: Patient was seen wandering the hallways and was directable and agreeable to darrin palafox with promotion writer in the office. Patient appears to have improvement in his hygiene and grooming today. She was carrying around several books and spoke about his books and jain. He states that his alcohol symptoms have been getting better and is denying any tremor at this time. He states that his mood and anxiety of been improving moderately. He claims that he did not sleep that well last night and blamed it on drinking "too much coffee last night". He states that he will not do that again tonight and once his trazodone term in the same dose. He claims that he feels that his girlfriend was triggering him to use alcohol and states that he does not usually have cravings. We spoke about anti-craving medications however patient states that he does not want that at this time and wants to remain going to AA meetings. Improving appetite. At this time patient denies any suicidal or homical ideations, intent or plan. Patient denies any auditory, visual hallucinations and denies any paranoia or delusions. Patient denies any side effects from the medications and has been compliant with meds. Mental Status Exam: General Appearance: Patient appears to be tall, thin, stated age is alert, directable, and attempts to be cooperative. Improving hygiene and grooming Behavior: Patient is calmly seated without any agitated behavior. More cooperative today. Speech: Patient's speech is fluent and nonpressured. Mood/Affect: Mood is improving mildly, affect is congruent and constricted. Suicidality/Homicidality: Patient denies having any suicidal or homicidal ideation intent or plan. Perceptions: Patient denies any visual hallucinations and denies any auditory hallucinations Though content/process: There is no evidence of any delusional thought content and thought process is linear and goal-directed. Rambles at times. Memory and concentration: AOX3, grossly intact for the purposes of this session Judgment and insight: Improving mildly Assessment: Major depressive disorder without psychotic features Alcohol use disorder, severe benzodiazepine use disorder nicotine dependence Plan: -Patient continues to meet criteria for inpatient psychiatric admission for symptom stabilization and safety. Patient has signed adult voluntary form and medication consent and was placed in patient's chart. -Medications: Prozac 40 mg daily for mood/anxiety, trazodone 50 mg daily at bedtime for insomnia/mood. Decrease Librium to 10 mg bid a day for alcohol withdrawal. -thiamine, MVM for etoh use -CIWA protocol with Ativan PRN for ETOH withdrawal -When necessary Ativan and Haldol for agitation/aggression. -NRT - nicotine patch -SW on board for discharge planning. Encouraged the patient to participate in milieu. He states that he is not interested in rehab at this time. Likely discharge tomorrow back home. Refusing rehab and wants to continue into AA meetings.
[2022-06-22] MEDS ORDERED: traZODone HCL 100 MG TAB PO SCH (21:00)
[2022-06-22 21:09] VITALS: RESP 16
[2022-06-23 07:04] VITALS: BP 104/63; PULSE 71; TEMP 98.3
[2022-06-23] MEDS: FOLIC ACID 1 MG TAB PO SCH (08:35)
[2022-06-23] MEDS: PANTOPRAZOLE 40 MG TABLET PO SCH (08:35)
[2022-06-23] MEDS: THIAMINE 100 MG TAB PO SCH (08:36)
[2022-06-23] MEDS: FLUoxetine HCL 20 MG CAP PO SCH (08:36)
[2022-06-23] MEDS: MULTIVITAMINS, THERA 1 EACH TAB PO SCH (08:36)
[2022-06-23] MEDS: HYDROcodone/APAP 5-325MG 1 EACH TAB PO PRN (08:37)
[2022-06-23] MEDS: NICOTINE 14MG/24HR PATCH TRANSDERM SCH (09:12)
--- NOTE | 2022-06-23 09:28 | P.DS ---
Providers Date of admission: 06/20/22 03:24 Expected date of discharge: 06/23/22 Attending physician: Carlin Gregorio MD Consults: 06/20/22 03:33 Consult Physician Routine Consulting Provider: Dulce Maria Gutierrez Consult Reason/Comments: For H & P for Medical Follow Up Do you want consulting provider notified?: Already Contacted Primary care physician: Shaheen Almanza - Discharge Diagnosis(es) (1) Major depressive disorder without psychotic features Current Visit: Yes Status: Acute Priority: High (2) Alcohol use disorder, severe, dependence Current Visit: Yes Status: Acute Priority: High (3) Benzodiazepine abuse Current Visit: Yes Status: Acute Priority: Medium (4) Nicotine dependence Current Visit: Yes Status: Acute Priority: Low Hospital Course: Admission HPI: Admission note was completed by advertising copywriter "The patient is a 42-year-old single male, 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 engaged. lives in apartment. no kids. Patient was seen today for psych evaluation. Patient was recently admitted to the med floors for DTs and etoh withdrawal and was seen by Dr Andrade for psych eval and was supposed to be transferred to however signed AMA. Patient came back to the Er shortly afterwards with his father complaining of etoh use, dep and SI. as per DrGrbabowskis CL evaluation "He acknowledged that he was having thoughts of suicide and wondered whether the combination of his drinking and use of clonazepam was a suicide attempt. He perseverated about his antidepressant Wellbutrin and wondered whether this the antidepressant was causing his suicidal thoughts or was no longer effective in treating his depression. It addition, he complained of recurrent problems with anxiety. He has long history of alcohol use problems with multiple rehabilitation admissi ons. He was vague about the pattern of use but alleged that his alcohol use increase sometime last week. He usually begins drinking in the morning before he goes to work and then resumes drinking when he returns home. He drink of choice is either vodka or liquor. He has been purchasing Klonopin on the [place] that he reportedly is using to treat withdrawal symptoms when he cannot drink. He has taken Klonopin while he was drinking. He described feelings of depression and intermittent thoughts of suicide. He denied specific suicidal intent or plan. I was unable to clearly obtain a history of whether he had attempted suicide in the past. He described free-floating anxiety but I was unable to separate subjective anxiety from alcohol withdrawal symptoms. He denied experiencing psychotic symptoms such as confusion, hallucinations or paranoia. He denied the use of other drugs such as heroin, cocaine or methamphetamine. He is prescribed Regan for the treatment of chronic back pain." Patient today continues to endorse depression and anxiety, he states that he was frustrated with Dr Almanza and him not being discharged. He states that his antipressant isnt helping him and wants a new one. He continues to state that he has elevated anxiety, depression. He states t hat he is irritated and hopeless. Denies any current SI or HI and denies any AH or VH. He states that his sleep is "on and off". appetite fair. claims he drinks about a pint of vodka/day, cigarettes. denies any other rec drug use." Hospital course: Upon admission to the unit patient was directable and agreeable to commence treatment and signed adult voluntary form . Patient got along well with other patients on the unit and followed unit protocol. Patient was compliant with the medications and denied any side effects throughout hospital course. Patient was started on Prozac and increased the dose of 40 mg daily for mood/anxiety, trazodone 100 mg daily at bedtime for insomnia/mood, patient was also placed on Librium scheduled for alcohol withdrawal and was gradually titrated off. Patient spoke of his stressors and engaged in therapy both group and individual. Patient was also seen by medical team for history and physical exam. Throughout the course of the hospitalization patient gradually improved with regards to mood, anxiety, sleep and became more future oriented with improved insight and judgment. On the day of discharge patient denied any suicidal or homicidal ideations intent or plan denied any auditory or visual hallucinations. Patient endorsed wanting to live for his health and his sobriety. The patient denied any access to guns or weapons. Patient denied any paranoia and did not endorse any delusions. Patient does have a significant history of substance abuse and was counseled on abstaining from all substances including alcohol and marijuana. Patient was offered however declined inpatient substance-abuse rehab. Patient elected to do outpatient substance use treatment program through [facility]. Patient is also enrolled in AA meetings and will continue on with this once he is discharged. Patient was not interested in anti-craving medications for alcohol use. Patient was also counseled on the medications and need for regular compliance and was encouraged to follow-up with their outpatient appointment for mental health and also for primary care. Prior to discharge a family meeting will be arranged by social worker school to answer any questions and ensure safety upon discharge. Mental status exam: General Appearance: Patient appears to be tall, long hair, stated age is alert, pleasant, and cooperative. Patient is in no acute distress and has improved hygiene and grooming Behavior: Patient is calmly seated without any agitated behavior. Speech: Patient's speech is fluent and nonpressured. Mood/Affect: Patient reports their mood is "good", affect is congruent and euthymic. Suicidality/Homicidality: Patient denies having any suicidal or homicidal ideation intent or plan. Perceptions: Patient denies any auditory or visual hallucinations. Though content/process: There is no evidence of any delusional thought content and thought process is linear and goal-directed. more future oriented Memory and concentration: AOX3, grossly intact for the purposes of this session. Can spell "WORLD" backwards correctly. Judgment and insight: chronically poor, however has improved with guarded prognosis Impression: Major depressive disorder, without psychotic features Alcohol use disorder, severe Benzodiazepine abuse Nicotine dependence Plan: -Continue with discharge today as patient has improved and stabilized psychiatrically and is not currently an imminent threat to himself and/or others. Patient will remain at chronically elevated risk for harm to self and/or others due to his substance abuse. -Continue medications: Prozac 40 mg daily for mood/anxiety, trazodone 100 mg daily at bedtime for insomnia/mood. -Patient was counseled on the need for medication compliance and appropriate follow-up at mental health and also primary care for medical issues. Patient verbalized understanding and agreed. -Social work to arrange for and conduct family meeting to ensure safety upon discharge and answer any questions/concerns. Social work also to arrange for patients follow up appointments with [facility] for psychiatric care along with follow up with primary care provider. -Patient counseled on abstaining from recreational drugs and marijuana and alcohol. Was informed/educated on the adverse effects on their physical and mental health. Patient verbally agreed and understood. Patient was offered substance abuse treatment however declined at this time. -Patient was instructed to return to the hospital or seek immediate medical care if their psychiatric or medical symptoms do worsen or reoccur. Allergies Allergy/AdvReac Type Severity Reaction Status Date / Time nickel Allergy Rash/Hives Verified 06/20/22 03:44 latex AdvReac Rash/Hives Verified 06/20/22 03:[address] Glu mg/dL 113 06/16/22 06:00 Hemoglobin A1c 5.6 % (0.0-6.0) 06/16/22 06:00 TSH 1.360 mIU/L (0.465-4.680) 06/16/22 06:00 Urine Color Yellow 06/19/22 23: Urine Appearance Clear (Clear) 06/19/22 23: Urine pH 6.0 (5.0-8.0) 06/19/22 23: Ur Specific [place] 1.020 (1.001-1.035) 06/19/22 23: Urine Protein Negative (Negative) 06/19/22 23: Urine Glucose (UA) Negative (Negative) 06/19/22 23: Urine Ketones Negative (Negative) 06/19/22 23: Urine Blood Negative (Negative) 06/19/22 23: Urine Nitrite Negative (Negative) 06/19/22 23:27 Urine Bilirubin Negative (Negative) 06/19/22 23: Urine Urobilinogen <2.0 mg/dL (<2.0) 06/19/22 23:27 Ur Leukocyte Esterase Negative (Negative) 06/19/22 23:27 Urine Opiates Screen Detected (NotDetected) H 06/19/22 23:27 Ur Oxycodone Screen Not Detected (NotDetected) 06/19/22 23:27 Urine Methadone Screen Not Detected (NotDetected) 06/19/22 23:27 Ur Propoxyphene Screen Not Detected (NotDetected) 06/19/22 23:27 Ur Barbiturates Screen Not Detected (NotDetected) 06/19/22 23:27 U Tricyclic Antidepress Not Detected (NotDetected) 06/19/22 23:27 Ur Phencyclidine Scrn Not Detected (NotDetected) 06/19/22 23:27 Ur Amphetamines Screen Not Detected (NotDetected) 06/19/22 23:27 U Methamphetamines Scrn Not Detected (NotDetected) 06/19/22 23:27 U Benzodiazepines Scrn Detected (NotDetected) H 06/19/22 23:27 Urine Cocaine Screen Not Detected (NotDetected) 06/19/22 23:27 U Marijuana (THC) Screen Detected (NotDetected) H 06/19/22 23:27 Coronavirus (PCR) Not Detected (Not Detectd) 06/19/22 23:26 Vital Signs Temp 98.3 F 06/23/22 06:38 Pulse 71 06/23/22 06:38 Resp 16 06/23/22 06:38 BP 104/63 06/23/22 06:38 Pulse Ox 97 06/22/22 21:06 FiO2 Patient Condition at Discharge: Stable Plan - Discharge Summary New Discharge Prescriptions: New traZODone HCL [Desyrel] 100 mg PO HS 30 Days tab Nicotine 14Mg/24Hr Patch [Habitrol] 1 patch TRANSDERM DAILY 14 Days patch Multivitamins, Thera [Multivitamin (formulary)] 1 each PO DAILY 30 Days tab HYDROcodone/APAP 5-325MG [Regan 5-325] 1 each PO 0900,1800 PRN tab PRN Reason: Pain Pantoprazole [Protonix] 40 mg PO AC-BRKFST 30 Days tab Folic Acid 1 mg PO DAILY 30 Days tab FLUoxetine HCL [PROzac] 40 mg PO DAILY 30 Days cap Continue Thiamine [Vitamin B-1] 100 mg PO BID-W/MEALS 30 Days tab Ibuprofen [Motrin] 600 mg PO Q6HR PRN tab PRN Reason: Pain Pantoprazole [Protonix] 40 mg PO AC-BRKFST tab Calcium Carbonate [Tums] 500 mg PO Q4HR PRN tab PRN Reason: Heartburn Discontinued buPROPion SR [Wellbutrin SR] 150 mg PO BID Hydrocodone/Acetaminophen [Hydrocodone/Acetaminophen 5-325] 1 tab PO BID PRN PRN Reason: Pain Folic Acid 0.5 mg PO DAILY tab Nicotine 14Mg/24Hr Patch [Habitrol] 1 patch TRANSDERM DAILY patch chlordiazePOXIDE HCl [Librium] 50 mg PO Q4H PRN cap PRN Reason: CIWA 6 to 7 chlordiazePOXIDE HCl [Librium] 25 mg PO Q4H PRN cap PRN Reason: CIWA 4 to 5 Discharge Medication List Calcium Carbonate [Tums] 500 mg PO Q4HR PRN tab 06/19/22 [Rx] Ibuprofen [Motrin] 600 mg PO Q6HR PRN tab 06/19/22 [Rx] Pantoprazole [Protonix] 40 mg PO AC-BRKFST tab 06/19/22 [Rx] FLUoxetine HCL [PROzac] 40 mg PO DAILY 30 Days cap 06/23/22 [Rx] Folic Acid 1 mg PO DAILY 30 Days tab 06/23/22 [Rx] HYDROcodone/APAP 5-325MG [Regan 5-325] 1 each PO 0900,1800 PRN tab 06/23/22 [Rx] Multivitamins, Thera [Multivitamin (formulary)] 1 each PO DAILY 30 Days tab 06/23/22 [Rx] Nicotine 14Mg/24Hr Patch [Habitrol] 1 patch TRANSDERM DAILY 14 Days patch 06/23/22 [Rx] Pantoprazole [Protonix] 40 mg PO AC-BRKFST 30 Days tab 06/23/22 [Rx] Thiamine [Vitamin B-1] 100 mg PO BID-W/MEALS 30 Days tab 06/23/22 [Rx] traZODone HCL [Desyrel] 100 mg PO HS 30 Days tab 06/23/22 [Rx] Follow up Appointment(s)/Referral(s): [facility] [Outside] - 06/30/22 11:30 am (with Esperanza) Shaheen Almanza MD [Primary Care Provider] - 1-2 days Activity/Diet/Wound Care/Special Instructions: Avoid the use of street drugs and alcohol. Take all prescriptions as prescribed. When you are in need of refills on your medications, please contact your medical provider and/or outpatient psychiatrist to have this done. Please go to scheduled outpatient appointment for aftercare treatment. If symptoms return or become worse, call the crisis line at and/or go to the nearest emergency room for evaluation. Discharge Disposition: HOME SELF-CARE
== END 2022-06-23 15:45 | disposition home or self-care (01) | DRG 897 ==
LOC: EC 22:22 → 3MHU 06-20 03:24
PROVIDERS: ADMIT Psychiatry & Neurology Psychiatry; ATTEND Psychiatry & Neurology Psychiatry
PROC: HZ2ZZZZ Detoxification Services for Substance Abuse Treatment (ICD-10-PCS; principal; 2022-06-20)
DX: F10.231 Alcohol dependence with withdrawal delirium (principal); R45.851 Suicidal ideations; Q61.3 Polycystic kidney, unspecified; F32.9 Major depressive disorder, single episode, unspecified; F17.210 Nicotine dependence, cigarettes, uncomplicated; F13.10 Sedative, hypnotic or anxiolytic abuse, uncomplicated; F41.9 Anxiety disorder, unspecified; G47.00 Insomnia, unspecified; G89.29 Other chronic pain; J44.9 Chronic obstructive pulmonary disease, unspecified; Z79.899 Other long term (current) drug therapy; Z91.51 Personal history of suicidal behavior; Z20.822 Contact with and (suspected) exposure to COVID-19; Z91.040 Latex allergy status; Z88.8 Allergy status to other drugs, medicaments and biological substances; Z87.442 Personal history of urinary calculi; Z86.14 Personal history of Methicillin resistant Staphylococcus aureus infection; X58.XXXA Exposure to other specified factors, initial encounter; F10.229 Alcohol dependence with intoxication, unspecified
CPT/HCPCS: 80306; 81003; 82075; 83036; 84443; 87635; 96372; 99285

== ENCOUNTER 2022-07-09 10:12 | Observation (INO) | payer OTHER ==
[2022-07-09] MEDS ORDERED: SODIUM CHLORIDE 0.9% 1,000 ML IV STA (11:36)
[2022-07-09 12:19] LABS: Basophils # (A) 0.1 k/uL (0-0.2); Basophils % (A) 1 %; Eosinophils % (A) 0 %; HCT 50.6 % (39.0-53.0); HGB 16.6 gm/dL (13.0-17.5); Lymphocytes % (A) 25 %; MCH 30.2 pg (25.0-35.0); MCHC 32.7 g/dL (31.0-37.0); MCV 92.3 fL (80.0-100.0); Mean Platelet Volume 6.9; Monocytes # (A) 0.4 k/uL (0-1.0); Monocytes % (A) 5 %; Neutrophils # (A) 5.4 k/uL (1.3-7.7); Neutrophils % (A) 68 %; Platelet Count 315 k/uL (150-450); RBC 5.48 m/uL (4.30-5.90); RDW 15.2 % (11.5-15.5)
[2022-07-09 12:35] LABS: ALT 33 U/L (4-49); AST 56 U/L (17-59); African American GFR (CKD) >90 (>60 ml/min/1.73 sqM); Alkaline Phosphatase 34 U/L (38-126); Anion Gap 19 mmol/L; Blood Urea Nitrogen 28 mg/dL (9-20); Calcium 8.7 mg/dL (8.4-10.2); Carbon Dioxide 20 mmol/L (22-30); Chloride 98 mmol/L (98-107); Glucose 120 mg/dL (74-99); Lipase 135 U/L (23-300); Magnesium 1.7 mg/dL (1.6-2.3); Non-African American GFR(CKD) >90 (>60 ml/min/1.73 sqM); Sodium 137 mmol/L (137-145); Total Bilirubin 0.8 mg/dL (0.2-1.3); Total Protein 8.3 g/dL (6.3-8.2)
[2022-07-09 12:48] LABS: Alcohol 244 mg/dL; Potassium 4.7 mmol/L (3.5-5.1)
[2022-07-09] MEDS ORDERED: NALOXONE 0.4 MG/ML 1 ML VIAL IV PRN (13:15)
[2022-07-09] MEDS ORDERED: LORazepam 2 MG/ML INJ IV PRN ×3 (13:15)
--- NOTE | 2022-07-09 13:15 | ED ---
Alcohol HPI - General Chief Complaint: Alcohol Stated Complaint: Detox Time Seen by Provider: 07/09/22 11:35 Source: patient, RN notes reviewed Mode of arrival: ambulatory Limitations: no limitations - History of Present Illness Initial Comments: 42-year-old male presents emergency Department chief complaint of alcohol abuse, alcohol withdrawal. Patient states he has severe withdrawal symptoms states he's had a seizure in the past. Patient is here with family stating patient needs further help this plan to go to rehab though he's had multiple seizures so they're concerned about his health. Patient does admit that he drinks at least a fifth a day had a recent hospitalization for mental health issues. MD Complaint: alcohol intoxication - Related Data Previous Rx's Medication Instructions Recorded Calcium Carbonate [Tums] 500 mg PO Q4HR PRN tab 06/19/22 Ibuprofen [Motrin] 600 mg PO Q6HR PRN tab 06/19/22 Pantoprazole [Protonix] 40 mg PO AC-BRKFST tab 06/19/22 FLUoxetine HCL [PROzac] 40 mg PO DAILY 30 Days cap 06/23/22 Folic Acid 1 mg PO DAILY 30 Days tab 06/23/22 HYDROcodone/APAP 5-325MG [[place] 1 each PO 0900,1800 PRN tab 06/23/22 5-325] Multivitamins, Thera [Multivitamin 1 each PO DAILY 30 Days tab 06/23/22 (formulary)] Nicotine 14Mg/24Hr Patch [Habitrol] 1 patch TRANSDERM DAILY 14 Days 06/23/22 patch Thiamine [Vitamin B-1] 100 mg PO BID-W/MEALS 30 Days tab 06/23/22 traZODone HCL [Desyrel] 100 mg PO HS 30 Days tab 06/23/22 Allergies Allergy/AdvReac Type Severity Reaction Status Date / Time nickel Allergy Rash/Hives Verified 07/09/22 10:16 latex AdvReac Rash/Hives Verified 07/09/22 10:16 Review of Systems ROS Statement: Those systems with pertinent positive or pertinent negative responses have been documented in the HPI. ROS Other: All systems not noted in ROS Statement are negative. Past Medical History Past Medical History: Thyroid Disorder Additional Past Medical History / Comment(s): alcoholism, seizures from alcohol withdrawal History of Any Multi-Drug Resistant Organisms: MRSA Date of last positivie culture/infection: 2012 MDRO Source:: Right forearm Past Surgical History: Orthopedic Surgery Additional Past Surgical History / Comment(s): nerurologist chronic back pain Past Psychological History: Depression Smoking Status: Current every day smoker Past Alcohol Use History: Abuse, Daily, Heavy Past Drug Use History: Marijuana General Exam Limitations: no limitations General appearance: alert, in no apparent distress Head exam: Present: atraumatic, normocephalic, normal inspection Eye exam: Present: normal appearance, PERRL, EOMI. Absent: scleral icterus, conjunctival injection, periorbital swelling ENT exam: Present: normal exam, mucous membranes moist Neck exam: Present: normal inspection. Absent: tenderness, meningismus, lymph adenopathy Respiratory exam: Present: normal lung sounds bilaterally. Absent: respiratory distress, wheezes, rales, rhonchi, stridor Cardiovascular Exam: Present: regular rate, normal rhythm, normal heart sounds. Absent: systolic murmur, diastolic murmur, rubs, gallop, clicks GI/Abdominal exam: Present: soft, normal bowel sounds. Absent: distended, tenderness, guarding, rebound, rigid Neurological exam: Present: alert Course Vital Signs 07/09/22 10:16 Temperature 97.9 F Pulse Rate 66 Respiratory 18 Rate Blood Pressure 116/77 O2 Sat by Pulse 99 Oximetry Medical Decision Making - Medical Decision Making Case discussed with Dr. Almanza. Patiently admitted for alcohol withdrawal, alcohol abuse concern for seizures. - Lab Data Result diagrams: 07/09/22 12:00 07/09/22 12:00 Lab Results 07/09/22 07/09/22 Range/Units 12:00 12:00 WBC 8.0 (3.8-10.6) k/uL RBC 5.48 (4.30-5.90) m/uL Hgb 16.6 (13.0-17.5) gm/dL Hct 50.6 (39.0-53.0) % MCV 92.3 (80.0-100.0) fL MCH 30.2 (25.0-35.0) pg MCHC 32.7 (31.0-37.0) g/dL RDW 15.2 (11.5-15.5) % Plt Count 315 (150-450) k/uL MPV 6.9 Neutrophils % 68 % Lymphocytes % 25 % Monocytes % 5 % Eosinophils % 0 % Basophils % 1 % Neutrophils # 5.4 (1.3-7.7) k/uL Lymphocytes # 2.0 (1.0-4.8) k/uL Monocytes # 0.4 (0-1.0) k/uL Eosinophils # 0.0 (0-0.7) k/uL Basophils # 0.1 (0-0.2) k/uL Sodium 137 (137-145) mmol/L Potassium 4.7 (3.5-5.1) mmol/L Chloride 98 (98-107) mmol/L Carbon Dioxide 20 L (22-30) mmol/L Anion Gap 19 mmol/L BUN 28 H (9-20) mg/dL Creatinine 0.81 (0.66-1.25) mg/dL Est GFR (CKD-EPI)AfAm >90 (>60 ml/min/1.73 sqM) Est GFR (CKD-EPI)NonAf >90 (>60 ml/min/1.73 sqM) Glucose 120 H (74-99) mg/dL Calcium 8.7 (8.4-10.2) mg/dL Magnesium 1.7 (1.6-2.3) mg/dL Total Bilirubin 0.8 (0.2-1.3) mg/dL AST 56 (17-59) U/L ALT 33 (4-49) U/L Alkaline Phosphatase 34 L (38-126) U/L Total Protein 8.3 H (6.3-8.2) g/dL Albumin 5.0 (3.5-5.0) g/dL Lipase 135 (23-300) U/L Serum Alcohol 244 H* mg/dL Disposition Clinical Impression: Alcohol intoxication, Alcohol use disorder, severe, dependence, Alcohol withdrawal Disposition: ADMITTED IP TO THIS HOSP Condition: Fair Referrals: Shaheen Almanza MD [Primary Care Provider] - 1-2 days Time of Disposition: 13:14
[2022-07-09] MEDS ORDERED: chlordiazePOXIDE 25 MG CAP PO PRN (13:26)
[2022-07-09] MEDS: ONDANSETRON 4 MG/2 ML VIAL IVP PRN (13:50)
[2022-07-09] MEDS: chlordiazePOXIDE 25 MG CAP PO PRN ×3 (14:03→22:01)
[2022-07-09] MEDS: THIAMINE 100 MG TAB PO SCH (18:06)
[2022-07-10] MEDS: NICOTINE 14MG/24HR PATCH TRANSDERM SCH ×2 (00:03→07:53)
[2022-07-10] MEDS: chlordiazePOXIDE 25 MG CAP PO PRN ×5 (03:13→20:49)
[2022-07-10] MEDS: THIAMINE 100 MG TAB PO SCH ×2 (07:53→16:32)
[2022-07-10] MEDS: HYDROcodone/APAP 5-325MG 1 EACH TAB PO PRN ×2 (11:37→20:49)
[2022-07-10] MEDS: ONDANSETRON 4 MG/2 ML VIAL IVP PRN ×2 (12:03→20:49)
[2022-07-10] MEDS: CALCIUM CARBONATE 500 MG CHEWABLE PO PRN ×2 (12:03→16:57)
[2022-07-10] MEDS: FLUoxetine HCL 20 MG CAP PO SCH (12:30)
[2022-07-10] MEDS: traZODone HCL 100 MG TAB PO SCH (20:41)
--- NOTE | 2022-07-11 03:53 | HP ---
HISTORY AND PHYSICAL CHIEF COMPLAINT: Acute alcohol intoxication. HISTORY OF PRESENT ILLNESS: This is another recent admission for this 42-year-old alcoholic. He was in the hospital recently and then discharged. He did not follow up in the office. He came back at this time acutely intoxicated once again and is indicating that he is going to rehab. He has had no seizures. He is not sure about blackouts. He denies diplopia, chest pain, abdominal pain, etc. He has been vomiting. He has not had hematemesis. PHYSICAL EXAMINATION: VITAL SIGNS: Blood pressure is 152/95 with a pulse of 110, respirations of 36, and he is afebrile. GENERAL: He appeared to be slender and acutely ill. HEAD, EARS, EYES, NOSE, MOUTH AND THROAT: Found the face to be flushed and is cleared to be injected. Pupils equal and round. Gaze is conjugate. NECK: Supple. CHEST: Clear. CARDIAC: Normal except for tachycardia. ABDOMEN: Soft and nontender without any masses or visceromegaly. EXTREMITIES: Normal. NEUROLOGICAL: He is intact at this time. IMPRESSION: 1. Acute alcohol intoxication. 2. Impending delirium tremens. 3. Chronic alcoholism. 4. Nicotine abuse. PLAN: 1. Bedrest. 2. IV fluids. 3. [facility] protocol. MMODL / IJN: [id number] /
--- NOTE | 2022-07-11 04:10 | PN ---
PROGRESS NOTE CHIEF COMPLAINT: Acute alcohol intoxication. HISTORY OF PRESENT ILLNESS: This gentleman is awake and alert, but he still feels ill. He is still nauseated. PHYSICAL EXAMINATION: VITAL SIGNS: Normal. CHEST: Clear. CARDIAC: Demonstrates sinus tachycardia. ABDOMEN: Flat, soft, nontender. IMPRESSION: 1. Acute alcohol intoxication. 2. Chronic alcoholism. 3. Chronic obstructive pulmonary disease. PLAN: No change in program. MMODL / IJN: [id number] /
[2022-07-11] MEDS: NICOTINE 14MG/24HR PATCH TRANSDERM SCH (07:58)
[2022-07-11] MEDS: MULTIVITAMINS, THERA 1 EACH TAB PO SCH (07:58)
[2022-07-11] MEDS: FOLIC ACID 1 MG TAB PO SCH (07:58)
[2022-07-11] MEDS: FLUoxetine HCL 20 MG CAP PO SCH (07:58)
[2022-07-11] MEDS: THIAMINE 100 MG TAB PO SCH ×2 (07:58→17:35)
[2022-07-11] MEDS: PANTOPRAZOLE 40 MG TABLET PO SCH (07:58)
[2022-07-11] MEDS: HYDROcodone/APAP 5-325MG 1 EACH TAB PO PRN ×2 (08:05→17:35)
[2022-07-11] MEDS: ONDANSETRON 4 MG/2 ML VIAL IVP PRN ×2 (11:27→19:21)
[2022-07-11] MEDS: chlordiazePOXIDE 25 MG CAP PO PRN ×3 (11:27→23:10)
[2022-07-11] MEDS: CALCIUM CARBONATE 500 MG CHEWABLE PO PRN ×3 (11:27→23:06)
[2022-07-11] MEDS: ACAMPROSATE CALCIUM 333 MG TABLET.DR PO SCH ×3 (11:32→20:33)
[2022-07-11] MEDS: traZODone HCL 100 MG TAB PO SCH (20:33)
[2022-07-12 04:13] VITALS: RESP 17
[2022-07-12 07:58] VITALS: BP 103/67; PULSE 66; TEMP 97.7
[2022-07-12] MEDS: PANTOPRAZOLE 40 MG TABLET PO SCH (08:43)
[2022-07-12] MEDS: FOLIC ACID 1 MG TAB PO SCH (08:43)
[2022-07-12] MEDS: NICOTINE 14MG/24HR PATCH TRANSDERM SCH (08:43)
[2022-07-12] MEDS: THIAMINE 100 MG TAB PO SCH (08:43)
[2022-07-12] MEDS: ACAMPROSATE CALCIUM 333 MG TABLET.DR PO SCH (08:43)
[2022-07-12] MEDS: FLUoxetine HCL 20 MG CAP PO SCH (08:44)
[2022-07-12] MEDS: MULTIVITAMINS, THERA 1 EACH TAB PO SCH (08:44)
[2022-07-12] MEDS: HYDROcodone/APAP 5-325MG 1 EACH TAB PO PRN (08:49)
[2022-07-12] MEDS: ONDANSETRON 4 MG/2 ML VIAL IVP PRN (08:49)
--- NOTE | 2022-07-13 05:19 | PN ---
PROGRESS NOTE CHIEF COMPLAINT: DTs and acute alcohol intoxication. HISTORY OF PRESENT ILLNESS: This gentleman is still in DTs. He is still tremulous and experiencing some nausea along with shortness of breath. PHYSICAL EXAMINATION: VITAL SIGNS: Normal. CHEST: Clear. CARDIAC: Normal. NEURO: He is somewhat tremulous. Face is flushed. IMPRESSION: 1. Acute alcohol intoxication. 2. Delirium tremens. 3. Chronic alcoholism. PLAN: Continue with current program and add Campral 666 mg 3 times a day. MMODL / IJN: [id number] /
--- NOTE | 2022-07-13 05:58 | DS ---
DISCHARGE SUMMARY CHIEF COMPLAINT: Acute alcohol intoxication and DTs. HISTORY OF PRESENT ILLNESS AND PHYSICAL EXAMINATION: Details of this man's history and physical can be found in the initial workup. LABORATORY STUDIES: While in the hospital, he had laboratory studies, details of which can be found in the laboratory section of his chart. COURSE IN THE HOSPITAL: After admission, he was placed on bedrest, started on intravenous fluids and the CIWA protocol. He was in DTs for a day or 2 and then improved. He was given Campral 666 mg 3 times a day. He was stable and felt he could go home on and he will be followed up in the office. He will be discharged on the Campral. FINAL DIAGNOSES: 1. Acute alcohol intoxication. 2. Delirium tremens. 3. Chronic alcoholism. 4. Chronic obstructive pulmonary disease. OPERATIONS: None. CONSULTATION: None. He is improved. NASH / WILFREDO: [id number] /
== END 2022-07-12 11:56 | disposition home or self-care (01) ==
LOC: EC 10:12 → 6NMEDSUR 13:21
PROVIDERS: ADMIT Family Medicine; ATTEND Family Medicine
DX: F10.231 Alcohol dependence with withdrawal delirium (principal); F10.220 Alcohol dependence with intoxication, uncomplicated; F32.A Depression, unspecified; F17.200 Nicotine dependence, unspecified, uncomplicated; J44.9 Chronic obstructive pulmonary disease, unspecified; Z79.899 Other long term (current) drug therapy; Z91.040 Latex allergy status; Y90.8 Blood alcohol level of 240 mg/100 ml or more
CPT/HCPCS: 96376 ×3; 82075; 96361; 96374; 99285; 36415; 80053; 83690; 83735; 85025; G0378 ×4; G0480; S4990 ×3; J2405 ×4; 80320

== ENCOUNTER 2023-06-04 18:00 | Inpatient (IN) | payer OTHER ==
--- NOTE | 2023-06-04 20:16 | ED ---
General Adult HPI - General Source: patient, RN notes reviewed Mode of arrival: ambulatory Limitations: no limitations <Yris Webster - Last Filed: 06/04/23 20:15> - General Source: patient, RN notes reviewed, old records reviewed <Liu Malik - Last Filed: 06/05/23 06:05> - General Chief complaint: Psychiatric Symptoms Stated complaint: ETOH Time Seen by Provider: 06/04/23 20:15 - History of Present Illness Initial comments: 43-year-old male presents to the emergency department with a chief complaint of alcohol withdrawals. Patient reports that he has tried to withdraw from alcohol. He admits to alcohol withdrawal seizures. (Yris Webster) Patient is a 43-year-old male with past medical history remarkable for thyroid disorder, alcohol abuse, alcohol withdrawals who presents complaining of wanting to detox off alcohol. States he does have a history of alcohol withdrawals. Also has chronic back pain. No acute trauma. Denies nausea or vomiting. Denies any chest pain. Has no other acute complaints at this time. States he will not drink alcohol discharged home. Presents for further evaluation. Initially seen his a quick note. (Liu Malik) - Related Data Home Medications Medication Instructions Recorded Confirmed HYDROcodone/APAP 5-325MG [[place] 1 tab PO BID PRN 07/09/22 07/09/22 5-325] Multivitamins, Thera [Multivitamin 1 tab PO DAILY 07/09/22 07/09/22 (formulary)] Previous Rx's Medication Instructions Recorded Calcium Carbonate [Tums] 500 mg PO Q4HR PRN tab 06/19/22 Ibuprofen [Motrin] 600 mg PO Q6HR PRN tab 06/19/22 Pantoprazole [Protonix] 40 mg PO AC-BRKFST tab 06/19/22 FLUoxetine HCL [PROzac] 40 mg PO DAILY 30 Days cap 06/23/22 Folic Acid 1 mg PO DAILY 30 Days tab 06/23/22 Nicotine 14Mg/24Hr Patch [Habitrol] 1 patch TRANSDERM DAILY 14 Days 06/23/22 patch Thiamine [Vitamin B-1] 100 mg PO BID-W/MEALS 30 Days tab 06/23/22 traZODone HCL [Desyrel] 100 mg PO HS 30 Days tab 06/23/22 Allergies Allergy/AdvReac Type Severity Reaction Status Date / Time nickel Allergy Rash/Hives Verified 06/04/23 18:06 latex AdvReac Rash/Hives Verified 06/04/23 18:06 Review of Systems ROS Other: All systems not noted in ROS Statement are negative. <Yris Webster - Last Filed: 06/04/23 20:15> ROS Other: All systems not noted in ROS Statement are negative. <Liu Malik - Last Filed: 06/05/23 06:05> ROS Statement: Those systems with pertinent positive or pertinent negative responses have been documented in the HPI. Review of Systems: CONST: Denies fever EYES: Denies blurry vision ENT: Denies nasal congestion C/V: Denies Chest pain RESP: Denies shortness of breath GI: Denies abdominal pain : Denies dysuria SKIN: Denies rash. MSK: Denies joint pain. NEURO: Denies headache PSYCH: Denies suicidal and homicidal ideations/plans/attempts. Denies visual or auditory hallucinations. (Liu Malik) Past Medical History Past Medical History: Thyroid Disorder Additional Past Medical History / Comment(s): alcoholism, seizures from alcohol withdrawal. last seizure was 3-4 months ago, chronic back pain takes steriod shots History of Any Multi-Drug Resistant Organisms: MRSA Date of last positivie culture/infection: 2012 MDRO Source:: Right forearm Past Surgical History: Orthopedic Surgery Additional Past Surgical History / Comment(s): left index finger sx. Past Anesthesia/Blood Transfusion Reactions: No Reported Reaction Past Psychological History: Anxiety, Depression Smoking Status: Current every day smoker Past Alcohol Use History: Abuse, Daily, Heavy Past Drug Use History: Marijuana - Past Family History Father Family Medical History: Thyroid Disorder Additional Family Medical History / Comment(s): pancreatitis Mother Family Medical History: Thyroid Disorder <Yris Webster - Last Filed: 06/04/23 20:15> General Exam Limitations: no limitations <Yris Webster - Last Filed: 06/04/23 20:15> <Liu Malik - Last Filed: 06/05/23 06:05> - General Exam Comments Initial Comments: Visual Physical Exam Vital signs reviewed General: Well-appearing, nontoxic, no acute distress. Head: Normocephalic, atraumatic Eyes: PERRLA, EOMI ENT: Airway patent Chest: Nonlabored breathing Skin: No visual rash, normal skin tone Neuro: Alert and oriented 3 Musculoskeletal: No gross abnormalities (Yris Webster) General: Appears in no acute distress. Appears acutely intoxicated with alcohol. HEAD: Normal with no signs of head trauma. EYES: PERRLA, EOMI, conjunctiva normal, no discharge. ENT: Hearing grossly intact, normal oropharynx. RESPIRATORY: Clear breath sounds bilaterally. No wheezes, rales, or rhonchi. C/V: Regular rate and rhythm. S1 and S2 auscultated, no edema, peripheral pulse s 2+ and intact throughout ABD: Abd is soft, nontender, nondistended EXT: Normal range of motion, no obvious deformity SKIN: No rashes or lesions observed on exposed skin. NEURO: Alert and oriented x 4. Cranial nerves II-XII intact. No focal sensory or strength deficits. Very mild tremors at this time. No dennis alcohol withdrawals. No tongue fasciculations. (Liu Malik) Course Vital Signs 06/04/23 06/04/23 06/05/23 18:03 20:11 04:55 Temperature 98.6 F Pulse Rate 120 H 88 83 Respiratory 18 20 18 Rate Blood Pressure 130/85 120/73 115/77 O2 Sat by Pulse 98 98 95 Oximetry Medical Decision Making - Lab Data Result diagrams: 06/04/23 23:01 06/04/23 23:01 - EKG Data -: EKG Interpreted by Il <Liu Malik - Last Filed: 06/05/23 06:05> - Medical Decision Making Was pt. sent in by a medical professional or institution ([facility] Asher, HAND D[employer] IN HEL[employer], urgent care, hospital, or [facility]...) When possible be specific @ -No Did you speak to anyone other than the patient for history (EMS, parent, family, police, friend...)? What history was obtained from this source @ -No Did you review nursing and triage notes (agree or disagree)? Why? @ -I reviewed and agree with nursing and triage notes Were old charts reviewed (outside hosp., previous admission, EMS record, old EKG, old radiological studies, urgent care reports/EKG's, [facility] records)? Report findings @ -No old charts were reviewed Differential Diagnosis (chest pain, altered mental status, abdominal pain women, abdominal pain men, vaginal bleeding, weakness, fever, dyspnea, syncope, headache, dizziness, GI bleed, back pain, seizure, CVA, palpatations, mental health, musculoskeletal)? @ -Alcohol withdrawal, alcohol intoxication, electrolyte abnormality, this list is not all-inclusive. EKG interpreted by me (3pts min.). @ -As above X-rays interpreted by me (1pt min.). @ -None done CT interpreted by me (1pt min.). @ -None done U/S interpreted by me (1pt. min.). @ -None done What testing was considered but not performed or refused? (CT, X-rays, U/S, labs)? Why? @ -None What meds were considered but not given or refused? Why? @ -None Did you discuss the management of the patient with other professionals (professionals i.e. , PA, HAND DRAWER IN HELPER, lab, RT, psych nurse, rn social services, director semiconductor, teacher, airline pilot/first officer, case finisher)? Give summary @ -Discussed with Dr. Almanza who accepted the patient. Was smoking cessation discussed for >3mins.? @ -No Was critical care preformed (if so, how long)? @ -No Were there social determinants of health that impacted care today? How? (Homelessness, low income, unemployed, alcoholism, drug addiction, transportation, low edu. Level, literacy, decrease access to med. care, residential, rehab)? @ -No Was there de-escalation of care discussed even if they declined (Discuss DNR or withdrawal of care, Hospice)? DNR status @ -No What co-morbidities impacted this encounter? (DM, HTN, Smoking, COPD, CAD, Cance r, CVA, ARF, Chemo, Hep., AIDS, mental health diagnosis, sleep apnea, morbid obesity)? @ -Alcoholism, alcohol withdrawal Was patient admitted / discharged? Hospital course, mention meds given and route, prescriptions, significant lab abnormalities, going to OR and other pertinent info. @ -Based on the patient's presentation and physical exam, presents acutely toxic with alcohol with plan to not drink further alcohol his friend he will wit hdraw as he does have a history of withdrawals per patient. Last drank was yesterday per patient. Typically drinks a fifth per day. States he states feeling like he is about to have withdrawal symptoms. Has mild tremors at this time. We'll obtain basic labs, as well as administer a dose of Ativan and obtain a seawall. He will receive his normal home pain meds as well. He was in agreement this plan. As he has no plans for she can't call at home, we will admit him. Labs are unremarkable. Alcohol level is 198. Patient is beginning to have some evidence of alcohol trouble at this time and therefore he will be admitted. He was in agreement with this plan. I spoke with the admitting physician Dr. Almanza who accepted the patient. Undiagnosed new problem with uncertain prognosis? @ -No Drug Therapy requiring intensive monitoring for toxicity (Heparin, Nitro, Insulin, Cardizem)? @ -No Were any procedures done? @ -No Diagnosis/symptom? @ -Alcohol intoxication, alcohol withdrawal Acute, or Chronic, or Acute on Chronic? @ -Acute on chronic Uncomplicated (without systemic symptoms) or Complicated (systemic symptoms)? @ -Complicated Side effects of treatment? @ -No Exacerbation, Progression, or Severe Exacerbation? @ -No Poses a threat to life or bodily function? How? (Chest pain, [place], [place], pneumonia, PE, COPD, DKA, ARF, appy, cholecystitis, CVA, Diverticulitis, Homicidal, Suicidal, threat to staff... and all critical care pts) @ -Yes (Liu Malik) - Lab Data Lab Results 06/04/23 06/04/23 Range/Units 23:01 23:01 WBC 7.2 (3.8-10.6) k/uL RBC 5.17 (4.30-5.90) m/uL Hgb 15.5 (13.0-17.5) gm/dL Hct 46.6 (39.0-53.0) % MCV 90.2 (80.0-100.0) fL MCH 30.0 (25.0-35.0) pg MCHC 33.2 (31.0-37.0) g/dL RDW 15.4 (11.5-15.5) % Plt Count 342 (150-450) k/uL MPV 7.0 Neutrophils % 55 % Lymphocytes % 36 % Monocytes % 7 % Eosinophils % 1 % Basophils % 0 % Neutrophils # 4.0 (1.3-7.7) k/uL Lymphocytes # 2.6 (1.0-4.8) k/uL Monocytes # 0.5 (0-1.0) k/uL Eosinophils # 0.1 (0-0.7) k/uL Basophils # 0.0 (0-0.2) k/uL Sodium 139 (137-145) mmol/L Potassium 4.2 (3.5-5.1) mmol/L Chloride 102 (98-107) mmol/L Carbon Dioxide 24 (22-30) mmol/L Anion Gap 13 mmol/L BUN 25 H (9-20) mg/dL Creatinine 0.64 L (0.66-1.25) mg/dL Est GFR (CKD-EPI)AfAm >90 (>60 ml/min/1.73 sqM) Est GFR (CKD-EPI)NonAf >90 (>60 ml/min/1.73 sqM) Glucose 124 H (74-99) mg/dL Calcium 9.2 (8.4-10.2) mg/dL Total Bilirubin 0.3 (0.2-1.3) mg/dL AST 36 (17-59) U/L ALT 23 (4-49) U/L Alkaline Phosphatase 40 (38-126) U/L Total Protein 7.4 (6.3-8.2) g/dL Albumin 4.5 (3.5-5.0) g/dL Serum Alcohol 198 mg/dL - EKG Data EKG Comments: 12-lead Electrocardiogram Interpretation Note EKG was reviewed and interpreted by myself. 12-lead ECG performed at 2310 is interpreted by me as revealing normal sinus rhythm at a rate of 81 beats per minute. [place] is normal. MA interval is 175 ms, QRS durations 106 seconds, QTC is 385 ms.. There were no ST or T wave abnormalities to suggest myocardial ischemia or injury. R wave progression across the precordium was satisfactory. By my interpretation this EKG is non-diagnostic for acute ischemia. (Liu Malik) Disposition <Yris Webster - Last Filed: 06/04/23 20:15> Time of Disposition: 01:10 <Liu Malik - Last Filed: 06/05/23 06:05> Clinical Impression: Alcohol intoxication, Alcohol withdrawal Disposition: ADMITTED IP TO THIS [facility] Condition: Stable
[2023-06-04] MEDS ORDERED: SODIUM CHLORIDE 0.9% 1,000 ML IV STA (22:38)
[2023-06-04] MEDS ORDERED: THIAMINE 100 MG/ML 2 ML VIAL IM STA (22:39)
[2023-06-04 23:25] LABS: Basophils % (A) 0 %; Eosinophils # (A) 0.1 k/uL (0-0.7); Eosinophils % (A) 1 %; HCT 46.6 % (39.0-53.0); HGB 15.5 gm/dL (13.0-17.5); Lymphocytes # (A) 2.6 k/uL (1.0-4.8); Lymphocytes % (A) 36 %; MCHC 33.2 g/dL (31.0-37.0); MCV 90.2 fL (80.0-100.0); Monocytes # (A) 0.5 k/uL (0-1.0); Monocytes % (A) 7 %; Neutrophils % (A) 55 %; Platelet Count 342 k/uL (150-450); RBC 5.17 m/uL (4.30-5.90); RDW 15.4 % (11.5-15.5); WBC 7.2 k/uL (3.8-10.6)
[2023-06-04 23:48] LABS: ALT 23 U/L (4-49); AST 36 U/L (17-59); African American GFR (CKD) >90 (>60 ml/min/1.73 sqM); Albumin 4.5 g/dL (3.5-5.0); Alkaline Phosphatase 40 U/L (38-126); Anion Gap 13 mmol/L; Blood Urea Nitrogen 25 mg/dL (9-20); Calcium 9.2 mg/dL (8.4-10.2); Carbon Dioxide 24 mmol/L (22-30); Chloride 102 mmol/L (98-107); Glucose 124 mg/dL (74-99); Non-African American GFR(CKD) >90 (>60 ml/min/1.73 sqM); Potassium 4.2 mmol/L (3.5-5.1); Sodium 139 mmol/L (137-145); Total Bilirubin 0.3 mg/dL (0.2-1.3); Total Protein 7.4 g/dL (6.3-8.2)
[2023-06-05 00:06] LABS: Alcohol 198 mg/dL
[2023-06-05] MEDS: LORazepam 2 MG/ML INJ IV PRN ×9 (00:59→22:02)
[2023-06-05] MEDS ORDERED: HYDROcodone/APAP 5-325MG 1 EACH TAB PO STA (01:00)
[2023-06-05] MEDS ORDERED: NALOXONE 0.4 MG/ML 1 ML VIAL IV PRN (01:34)
[2023-06-05] MEDS: SODIUM CHLORIDE 0.9% 1,000 ML IV SCH ×2 (05:14→08:32)
[2023-06-05] MEDS: THIAMINE 100 MG TAB PO SCH (08:40)
[2023-06-05 08:49] LABS: Appearance,Urine Clear (Clear); Bilirubin,Urine Negative (Negative); Blood,Urine Negative (Negative); Color,Urine Yellow; Glucose,Urine (UA) Negative (Negative); Ketones,Urine Negative (Negative); Leukocyte Esterase,Urine Negative (Negative); Mucus,Urine Occasional /hpf; Nitrite,Urine Negative (Negative); Protein,Urine 1+ (Negative); RBC,Urine 3 /hpf (0-5); Specific Gravity,Urine 1.027 (1.001-1.035); Squamous Epithelial Cell,Urine <1 /hpf (0-4); Urobilinogen,Urine <2.0 mg/dL (<2.0); WBC,Urine <1 /hpf (0-5)
[2023-06-05] MEDS: HYDROcodone/APAP 5-325MG 1 EACH TAB PO PRN (12:10)
[2023-06-05] MEDS ORDERED: ALBUTEROL SULFATE PO PRN (14:34)
[2023-06-05] MEDS ORDERED: BACLOFEN 10 MG TAB PO PRN (14:34)
[2023-06-05] MEDS: PREGABALIN 100 MG CAP PO SCH ×2 (15:17→21:56)
[2023-06-05] MEDS: IBUPROFEN 400 MG TAB PO PRN (17:35)
[2023-06-05 19:52] VITALS: RESP 16
[2023-06-05] MEDS: SYMBICORT 160-4.5 MCG INHALER INHALATION SCH (20:18)
[2023-06-05] MEDS ORDERED: MIRTAZAPINE 45 MG TABLET PO SCH (21:00)
--- NOTE | 2023-06-05 23:36 | HP ---
HISTORY AND PHYSICAL CHIEF COMPLAINT: Acute alcohol intoxication. HISTORY OF PRESENT ILLNESS: This is another admission for this 43-year-old chronic alcoholic. He has been a very hard-core drinker on and off all of his life. 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 He came in completely intoxicated and in DTs. REVIEW OF SYSTEMS: He has had no seizures that he knows of. He has had no nausea, vomiting, hematemesis, melena, jaundice, etc. Past medical history, family history, and personal and social histories are unremarkable or noncontributory otherwise. He is also a very heavy smoker. He has had problems with depression in the past with suicidal efforts. He is not allergic to any medication. PHYSICAL EXAMINATION: VITAL SIGNS: Blood pressure is 145/95 with a pulse of 96 and regular, respirations of 34, and he is afebrile. GENERAL: He appeared to be slender and slightly diaphoretic. He was disheveled. HEAD, EARS, EYES, NOSE, MOUTH AND THROAT: Normal. CHEST: Demonstrated scattered rales and rhonchi. CARDIAC: Demonstrated sinus tachycardia. ABDOMEN: Flat, soft, nontender without any visceromegaly or masses. Bowel sounds were not heard. EXTREMITIES: Normal. NEUROLOGICAL: He was somewhat tremulous. ASSESSMENT: He is admitted to the hospital with diagnosis of: 1. Acute alcohol intoxication. 2. Chronic alcoholism. 3. Delirium tremens. PLAN: 1. Bed rest. 2. IV fluids. 3. CIWA protocol. NASH / WILFREDO: [id number] /
[2023-06-06] MEDS: HYDROcodone/APAP 5-325MG 1 EACH TAB PO PRN ×2 (01:23→12:59)
[2023-06-06] MEDS: LORazepam 2 MG/ML INJ IV PRN ×2 (01:24→06:17)
[2023-06-06] MEDS: SODIUM CHLORIDE 0.9% 1,000 ML IV SCH ×3 (01:27→08:33)
[2023-06-06] MEDS: IBUPROFEN 400 MG TAB PO PRN (06:16)
[2023-06-06] MEDS: PREGABALIN 100 MG CAP PO SCH ×2 (08:33→16:48)
[2023-06-06] MEDS: THIAMINE 100 MG TAB PO SCH (08:33)
[2023-06-06 09:12] VITALS: BMI 24.3
[2023-06-06] MEDS: SYMBICORT 160-4.5 MCG INHALER INHALATION SCH (09:17)
[2023-06-06 11:05] LABS: Basophils # (A) 0.02 X 10*3/uL (0.00-0.10); Basophils % (A) 0.3 %; Eosinophils # (A) 0.11 X 10*3/uL (0.04-0.35); Eosinophils % (A) 1.6 %; HCT 41.1 % (39.6-50.0); HGB 13.6 d/dL (12.0-15.0); MCH 29.6 pg (27.0-32.0); MCHC 33.1 d/dL (32.0-37.0); MCV 89.5 FL (80.0-97.0); Mean Platelet Volume 9.7 FL (9.5-12.2); Monocytes # (A) 0.74 X 10*3/uL (0.20-1.00); Monocytes % (A) 10.6 %; NRBC Per 100 WBC 0 X 10*3/uL (0.00-0.01); Neutrophils # (A) 3.79 X 10*3/uL (1.80-7.70); Neutrophils % (A) 54.4 %; Platelet Count 258 X 10*3/uL (140-440); RBC 4.59 X 10*6/uL (4.40-5.60); RDW 15.4 % (11.5-14.5); WBC 6.97 X 10*3/uL (4.50-10.00)
[2023-06-06 11:15] LABS: BUN/Creat Ratio 21.67 Ratio (12.00-20.00); Calcium 8.6 mg/dL (8.7-10.3); Carbon Dioxide 19.8 mmol/L (21.6-31.8); Chloride 110 mmol/L (96-109); Glucose 94 mg/dL (70-110); Potassium 4.1 mmol/L (3.5-5.5); Sodium 142 mmol/L (135-145)
[2023-06-06 12:40] VITALS: PULSE 65; TEMP 98.1
[2023-06-06 12:42] VITALS: BP 138/85
[2023-06-06] MEDS ORDERED: ACAMPROSATE CALCIUM 333 MG TABLET.DR PO SCH (16:15)
--- NOTE | 2023-06-07 04:14 | DS ---
DISCHARGE SUMMARY CHIEF COMPLAINT: Acute alcohol intoxication and DTs. HISTORY OF PRESENT ILLNESS AND PHYSICAL EXAMINATION: Details of this man's history and physical can be found in the initial workup. LABORATORY STUDIES: While he was in the hospital, he had laboratory studies, details of which can be found in the laboratory section of his chart. COURSE IN THE HOSPITAL: After admission, he was placed on bedrest, started on IV fluids and CIWA protocol. He remained quite ill, the following day, he was doing well, it was felt that he could be discharged and get to a meeting. He will go home on his usual activity, diet, and medication along with Campral 666 mg 3 times a day and to be followed up in the office in a few days. He will also be kept on thiamine 100 mg b.i.d. FINAL DIAGNOSIS: 1. Acute alcohol intoxication. 2. Chronic alcoholism. 3. Delirium tremens. OPERATIONS: None. CONSULTATION: None. He is improved. MMCHERYL / ARIASN: [id number] /
== END 2023-06-06 16:51 | disposition home or self-care (01) | DRG 775 ==
LOC: EC 18:00 → 5NMEDONC 06-05 01:34
PROVIDERS: ADMIT Family Medicine; ATTEND Family Medicine
DX: F10.231 Alcohol dependence with withdrawal delirium (principal); F10.229 Alcohol dependence with intoxication, unspecified; F17.210 Nicotine dependence, cigarettes, uncomplicated; R00.0 Tachycardia, unspecified; G89.29 Other chronic pain; E07.9 Disorder of thyroid, unspecified; M54.9 Dorsalgia, unspecified; Y90.6 Blood alcohol level of 120-199 mg/100 ml; Z71.41 Alcohol abuse counseling and surveillance of alcoholic; Z91.040 Latex allergy status; Z91.048 Other nonmedicinal substance allergy status; Z86.14 Personal history of Methicillin resistant Staphylococcus aureus infection
CPT/HCPCS: 36415; 80048; 80053; 80320; 81001; 82075; 85025; 93005; 94640; 96361; 96372; 96374; 96376; 99285

== ENCOUNTER 2023-07-03 13:17 | Inpatient (IN) | payer OTHER ==
[2023-07-03] MEDS ORDERED: SODIUM CHLORIDE 0.9% 1,000 ML IV STA (14:01)
--- NOTE | 2023-07-03 14:10 | ED ---
General Adult HPI - General Chief complaint: Alcohol Stated complaint: Alcohol Time Seen by Provider: 07/03/23 13:41 Source: patient Mode of arrival: ambulatory - History of Present Illness Initial comments: Dictation was produced using [employer] dictation software. please excuse any grammatical, word or spelling errors. Chief Complaint: 43-year-old male presents to the emergency department for alcohol withdrawals History of Present Illness: Is 43-year-old male who states that he has history of alcohol abuse. Patient has a history of alcohol withdrawal seizures. Been admitted to the hospital for alcohol withdrawals in the past. States that he is here today because he wants to quit alcohol again. Drinks up to a fifth of liquor daily. Last alcohol intake was earlier this morning. Denies any abdominal pain. No other medical complaints. The ROS documented in this emergency department record has been reviewed and confirmed by me. Those systems with pertinent positive or negative responses have been documented in the HPI. All other systems are other negative and/or noncontributory. - Related Data Home Medications Medication Instructions Recorded Confirmed Albuterol Sulfate [Albuterol 1 - 2 puff PO RT-QID PRN 06/05/23 07/03/23 Sulfate Hfa] Baclofen [Lioresal] 10 mg PO TID PRN 06/05/23 07/03/23 Budesonide/Formoterol Fumarate 2 puff INHALATION RT-BID 06/05/23 07/03/23 [Symbicort 160-4.5 Mcg Inhaler] HYDROcodone/APAP 7.5-325MG [[place] 1 tab PO BID PRN 06/05/23 07/03/23 7.5-325] Mirtazapine [Remeron] 45 mg PO HS 06/05/23 07/03/23 Pregabalin [Lyrica] 100 mg PO TID 06/05/23 07/03/23 diazePAM 2 mg PO TID PRN 06/05/23 07/03/23 Previous Rx's Medication Instructions Recorded Acamprosate Calcium [Campral] 666 mg PO TID #90 tab 06/06/23 Thiamine [Vitamin B-1] 100 mg PO BID #60 tab 06/06/23 Allergies Allergy/AdvReac Type Severity Reaction Status Date / Time latex Allergy Rash/Hives Verified 07/03/23 15:54 nickel Allergy Rash/Hives Verified 07/03/23 15:54 Review of Systems ROS Statement: Those systems with pertinent positive or pertinent negative responses have been documented in the HPI. ROS Other: All systems not noted in ROS Statement are negative. Past Medical History Past Medical History: Thyroid Disorder Additional Past Medical History / Comment(s): alcoholism, seizures from alcohol withdrawal. last seizure was 3-4 months ago, chronic back pain takes steriod shots History of Any Multi-Drug Resistant Organisms: MRSA Date of last positivie culture/infection: 2012 MDRO Source:: Right forearm Past Surgical History: Orthopedic Surgery Additional Past Surgical History / Comment(s): left index finger sx. Past Anesthesia/Blood Transfusion Reactions: No Reported Reaction Past Psychological History: Anxiety, Depression Smoking Status: Current every day smoker Past Alcohol Use History: Abuse, Daily, Heavy Past Drug Use History: Marijuana - Past Family History Father Family Medical History: Thyroid Disorder Additional Family Medical History / Comment(s): pancreatitis Mother Family Medical History: Thyroid Disorder General Exam - General Exam Comments Initial Comments: PHYSICAL EXAM: General Impression: Alert and oriented x3, not in acute distress HEENT: Normocephalic atraumatic, extra-ocular movements intact, pupils equal and reactive to light bilaterally, mucous membranes moist. Cardiovascular: Heart regular rate and rhythm Chest: Able to complete full sentences, no retractions, no tachypnea Abdomen: abdomen soft, non-tender, non-distended, no organomegaly Musculoskeletal: Pulses present and equal in all extremities, no peripheral edema Motor: no focal deficits noted Neurological: CN II-XII grossly intact, no focal motor or sensory deficits noted Skin: Intact with no visualized rashes Psych: Normal affect and mood Course Vital Signs 07/03/23 07/03/23 07/03/23 13:31 14:35 17:15 Temperature 98.2 F Pulse Rate 103 H 79 80 Respiratory 18 18 18 Rate Blood Pressure 128/83 112/75 115/81 O2 Sat by Pulse 97 100 98 Oximetry 07/03/23 18:15 Temperature 98.7 F Pulse Rate 76 Respiratory 18 Rate Blood Pressure 120/73 O2 Sat by Pulse 97 Oximetry Medical Decision Making - Medical Decision Making Was pt. sent in by a medical professional or institution (, PA, EXPERIMENTAL DISPLAY BUILDER, urgent care, hospital, or half-way...) When possible be specific @ -No Did you speak to anyone other than the patient for history (EMS, parent, family, police, friend...)? What history was obtained from this source @ -No Did you review nursing and triage notes (agree or disagree)? Why? @ -I reviewed and agree with nursing and triage notes Were old charts reviewed (outside hosp., previous admission, EMS record, old EKG, old radiological studies, urgent care reports/EKG's, half-way records)? Report findings @ -No old charts were reviewed Differential Diagnosis (chest pain, altered mental status, abdominal pain women, abdominal pain men, vaginal bleeding, musculoskeletal, weakness, fever, dyspnea, syncope, headache, dizziness, GI bleed, back pain, seizure, CVA, palpatations, mental health)? @ -not applicable EKG interpreted by me (3pts min.). @ -None done X-rays interpreted by me (1pt min.). @ -None done CT interpreted by me (1pt min.). @ -None done U/S interpreted by me (1pt. min.). @ -None done What testing was considered but not performed or refused? (CT, X-rays, U/S, labs)? Why? @ -None What meds were considered but not given or refused? Why? @ -None Did you discuss the management of the patient with other professionals (professionals i.e. , PA, EXPERIMENTAL DISPLAY BUILDER, lab, RT, psych nurse, child protective services social worker, operation agent, teacher, humane officer, case consultant)? Give summary @ -Discussed with Dr. Almanza for admission Was smoking cessation discussed for >3mins.? @ -No Was critical care preformed (if so, how long)? @ -No Were there social determinants of health that impacted care today? How? (Homelessness, low income, unemployed, alcoholism, drug addiction, transportation, low edu. Level, literacy, decrease access to med. care, fci, rehab)? @ -No Was there de-escalation of care discussed even if they declined (Discuss DNR or withdrawal of care, Hospice)? DNR status @ -No What co-morbidities impacted this encounter? (DM, HTN, Smoking, COPD, CAD, Cancer, CVA, ARF, Chemo, Hep., AIDS, mental health diagnosis, sleep apnea, morbid obesity)? @ -None Was patient admitted / discharged? Hospital course, mention meds given and route, prescriptions, significant lab abnormalities, going to OR and other pertinent info. @ -43-year-old male presents emergency department for concerns of alcohol withdrawal. Vital signs are stable. Patient has history of alcohol withdrawal. Vital signs upon arrival are within acceptable limits. Laboratory evaluation shows findings within acceptable limits. Alcohol level of 220. Patient not show any obvious EtOH withdrawal symptoms however given his history he is high risk. Patient admitted to Dr. Almanza for further care. Undiagnosed new problem with uncertain prognosis? @ -No Drug Therapy requiring intensive monitoring for toxicity (Heparin, Nitro, Insulin, Cardizem)? @ -No Were any procedures done? @ -No Diagnosis/symptom? Acute, or Chronic, or Acute on Chronic? Uncomplicated (without systemic symptoms) or Complicated (systemic symptoms)? @ -Alcohol withdrawal Side effects of treatment? @ -No Exacerbation, Progression, or Severe Exacerbation? @ -No Poses a threat to life or bodily function? How? (Chest pain, [place], [place], pneumonia, PE, COPD, DKA, ARF, appy, cholecystitis, CVA, Diverticulitis, Homicidal, Suicidal, threat to staff... and all critical care pts) @ -yes - Lab Data Result diagrams: 07/03/23 14:46 Lab Results 07/03/23 07/03/23 Range/Units 14:46 14:50 Sodium 136 L (137-145) mmol/L Potassium 4.0 (3.5-5.1) mmol/L Chloride 101 (98-107) mmol/L Carbon Dioxide 22 (22-30) mmol/L Anion Gap 13 mmol/L BUN 17 (9-20) mg/dL Creatinine 0.56 L (0.66-1.25) mg/dL Est GFR (CKD-EPI)AfAm >90 (>60 ml/min/1.73 sqM) Est GFR (CKD-EPI)NonAf >90 (>60 ml/min/1.73 sqM) Glucose 122 H (74-99) mg/dL Plasma Lactic Acid [place] 1.9 (0.7-2.0) mmol/L Calcium 8.9 (8.4-10.2) mg/dL Total Bilirubin 1.0 (0.2-1.3) mg/dL AST 302 H (17-59) U/L ALT 90 H (4-49) U/L Alkaline Phosphatase 40 (38-126) U/L Total Protein 6.8 (6.3-8.2) g/dL Albumin 4.1 (3.5-5.0) g/dL Serum Alcohol 220 H* mg/dL Disposition Clinical Impression: Alcohol abuse with withdrawal Disposition: ADMITTED IP TO THIS [facility] Condition: Fair Referrals: None,Stated [Primary Care Provider] - 1-2 days Decision Time: 17:00
[2023-07-03 15:05] LABS: ALT 90 U/L (4-49); AST 302 U/L (17-59); African American GFR (CKD) >90 (>60 ml/min/1.73 sqM); Albumin 4.1 g/dL (3.5-5.0); Alkaline Phosphatase 40 U/L (38-126); Anion Gap 13 mmol/L; Blood Urea Nitrogen 17 mg/dL (9-20); Calcium 8.9 mg/dL (8.4-10.2); Carbon Dioxide 22 mmol/L (22-30); Chloride 101 mmol/L (98-107); Glucose 122 mg/dL (74-99); Non-African American GFR(CKD) >90 (>60 ml/min/1.73 sqM); Sodium 136 mmol/L (137-145); Total Protein 6.8 g/dL (6.3-8.2)
[2023-07-03 15:12] LABS: Alcohol 220 mg/dL
[2023-07-03] MEDS ORDERED: THIAMINE 100 MG/ML 2 ML VIAL IM STA (18:10)
[2023-07-03] MEDS ORDERED: LORazepam 2 MG/ML INJ IV PRN (18:10)
[2023-07-03] MEDS ORDERED: NALOXONE 0.4 MG/ML 1 ML VIAL IV PRN (19:07)
[2023-07-03] MEDS: SODIUM CHLORIDE 0.9% 1,000 ML IV SCH (19:58)
[2023-07-03] MEDS: LORazepam 2 MG/ML INJ IV PRN (21:29)
[2023-07-04] MEDS: LORazepam 2 MG/ML INJ IV PRN ×9 (00:21→21:34)
[2023-07-04] MEDS ORDERED: THIAMINE 100 MG TAB PO SCH (09:00)
[2023-07-04] MEDS: ACAMPROSATE CALCIUM 333 MG TABLET.DR PO SCH ×2 (16:04→21:06)
[2023-07-04] MEDS: PREGABALIN 100 MG CAP PO SCH ×2 (16:04→21:06)
[2023-07-04 17:12] LABS: Basophils # (A) 0.02 X 10*3/uL (0.00-0.10); Basophils % (A) 0.4 %; Eosinophils % (A) 1.8 %; HCT 40.8 % (39.6-50.0); HGB 13.7 d/dL (13.0-17.0); Lymphocytes # (A) 1.04 X 10*3/uL (0.90-5.00); Lymphocytes % (A) 19.2 %; MCH 29.8 pg (27.0-32.0); MCHC 33.6 d/dL (32.0-37.0); MCV 88.9 FL (80.0-97.0); Mean Platelet Volume 9.8 FL (9.5-12.2); Monocytes # (A) 0.48 X 10*3/uL (0.20-1.00); Monocytes % (A) 8.9 %; NRBC Per 100 WBC 0 X 10*3/uL (0.00-0.01); Neutrophils # (A) 3.77 X 10*3/uL (1.80-7.70); Neutrophils % (A) 69.5 %; Platelet Count 169 X 10*3/uL (140-440); RBC 4.59 X 10*6/uL (4.40-5.60); RDW 15.4 % (11.5-14.5); WBC 5.42 X 10*3/uL (4.50-10.00)
[2023-07-04 17:48] LABS: ALT 102 U/L (10-49); AST 248 U/L (14-35); Albumin 3.9 d/dL (3.8-4.9); Albumin/Globulin Ratio 1.95 Ratio (1.60-3.17); Alkaline Phosphatase 42 U/L (41-126); BUN/Creat Ratio 20.14 Ratio (12.00-20.00); Blood Urea Nitrogen 14.1 mg/dL (9.0-27.0); Calcium 8.9 mg/dL (8.7-10.3); Carbon Dioxide 25.5 mmol/L (21.6-31.8); Chloride 104 mmol/L (96-109); Glucose 109 mg/dL (70-110); Lipase 48 U/L (14-60); Potassium 4.6 mmol/L (3.5-5.5); Sodium 139 mmol/L (135-145); Total Bilirubin 0.5 mg/dL (0.3-1.2); Total Protein 5.9 d/dL (6.2-8.2)
[2023-07-04 19:57] LABS: INR <0.93 sec (0.93-1.11)
[2023-07-04] MEDS: SODIUM CHLORIDE 0.9% 1,000 ML IV SCH (20:16)
[2023-07-04] MEDS: SYMBICORT 160-4.5 MCG INHALER INHALATION SCH (20:44)
[2023-07-04] MEDS ORDERED: MIRTAZAPINE 45 MG TABLET PO SCH (21:00)
[2023-07-04] MEDS: THIAMINE 100 MG TAB PO SCH (21:06)
[2023-07-05] MEDS: LORazepam 2 MG/ML INJ IV PRN ×4 (00:11→12:07)
--- NOTE | 2023-07-05 03:44 | HP ---
HISTORY AND PHYSICAL CHIEF COMPLAINT: Alcohol intoxication and DTs. HISTORY OF PRESENT ILLNESS: This is another admission for this 43-year-old chronic and severely addicted alcoholic. In addition to that, he smokes a great deal. He has been drinking on and off for some time. 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 He has gone through several depressing relationships and continues to drink heavily. Came to the emergency room with DTs. REVIEW OF SYSTEMS: Cannot be reliably obtained. He was extremely intoxicated. Past medical history, family history, personal and social histories are unremarkable. He is not allergic to any medication. MEDICATIONS: His medications have included, 1. Symbicort. 2. Thiamine. 3. Acamprosate. 4. Mirtazapine. 5. Ventolin. 6. Valium. 7. Lyrica. 8. Baclofen. 9. Ibuprofen. PHYSICAL EXAMINATION: VITAL SIGNS: Blood pressure is 138/92 with a pulse of 106, respirations of 34, and he is afebrile. GENERAL: He appeared to be tall, slender and intoxicated. HEAD, EARS, EYES, NOSE, MOUTH AND THROAT: Revealed a scleral injection. There is no icterus. NECK: Neck veins not distended. CHEST: Demonstrated scattered rales and rhonchi with wheezing. CARDIAC: Revealed a sinus tachycardia. ABDOMEN: Flat, soft, nontender without visceromegaly or masses. Bowel sounds present. EXTREMITIES: Normal. NEUROLOGICAL: He was intact, but intoxicated. ASSESSMENT: He is admitted to the hospital with diagnosis of: 1. Acute alcohol intoxication. 2. Delirium tremens. 3. Depression. 4. Chronic obstructive pulmonary disease. PLAN: 1. Bedrest. 2. IV fluids. 3. CIWA protocol. MMODL / IJN: [id number] /
--- NOTE | 2023-07-05 04:05 | PN ---
PROGRESS NOTE DATE OF SERVICE: 07/04/2023 CHIEF COMPLAINT: DTs. HISTORY OF PRESENT ILLNESS: This gentleman is feeling dennis DTs. He has no complaints, however. PHYSICAL EXAMINATION: HEENT: Sclerae are injected. CHEST: Clear. CARDIAC: Normal. ABDOMEN: Soft, nontender. IMPRESSION: 1. Acute alcohol intoxication. 2. Delirium tremens. 3. Chronic obstructive pulmonary disease. 4. Chronic alcoholism. 5. Depression. PLAN: Continue with [facility] protocol. NASH / ARIASN: [id number] /
[2023-07-05] MEDS: ACAMPROSATE CALCIUM 333 MG TABLET.DR PO SCH (07:17)
[2023-07-05] MEDS: PREGABALIN 100 MG CAP PO SCH (07:17)
[2023-07-05] MEDS: THIAMINE 100 MG TAB PO SCH (07:17)
[2023-07-05] MEDS: SYMBICORT 160-4.5 MCG INHALER INHALATION SCH (08:22)
[2023-07-05 13:14] VITALS: BP 114/79; PULSE 63; RESP 18; TEMP 98.4
--- NOTE | 2023-07-05 14:58 | PN ---
PROGRESS NOTE CHIEF COMPLAINT: DTs. HISTORY OF PRESENT ILLNESS: This gentleman is slightly improved. He still slightly tremor and is in DTs. PHYSICAL EXAMINATION: CHEST: Clear. CARDIAC: Normal. ABDOMEN: Soft and nontender. IMPRESSION: 1. Delirium tremens. 2. Alcoholism. 3. Depression. PLAN: Continue with current detox program. We discussed depression, but he is not suicidal and does not request psychiatric evaluation at this time. MMODL / IJN: [id number] /
--- NOTE | 2023-07-07 00:53 | DS ---
DISCHARGE SUMMARY CHIEF COMPLAINT: Acute alcohol intoxication and DTs. HISTORY OF PRESENT ILLNESS AND PHYSICAL EXAMINATION: Details of this man's history and physical can be found in the initial workup. LABORATORY STUDIES: While he is in the hospital, he had laboratory studies, details of which can be found in the laboratory section of his chart. COURSE IN THE HOSPITAL: After admission, he was placed on bedrest and started on intravenous fluids and a CIWA protocol. He struggled for the first 2 or 3 days with DTs, nausea, and dehydration. He was improving and then he suddenly signed himself out against medical advice on the . FINAL DIAGNOSES: 1. Acute alcohol intoxication. 2. Chronic alcoholism. 3. Delirium tremens. 4. Nicotine abuse. 5. Chronic obstructive pulmonary disease. OPERATIONS: None. CONSULTATION: None. He is improved. MMODL / IJN: [id number] /
== END 2023-07-05 14:20 | disposition left against medical advice (07) | DRG 770 ==
LOC: EC 13:17 → 5NMEDONC 19:07
PROVIDERS: ADMIT Family Medicine; ATTEND Family Medicine
PROC: HZ2ZZZZ Detoxification Services for Substance Abuse Treatment (ICD-10-PCS; principal; 2023-07-03)
DX: F10.231 Alcohol dependence with withdrawal delirium (principal); F10.229 Alcohol dependence with intoxication, unspecified; J44.9 Chronic obstructive pulmonary disease, unspecified; Z53.29 Procedure and treatment not carried out because of patient's decision for other reasons; F32.A Depression, unspecified; R00.0 Tachycardia, unspecified; E86.0 Dehydration; Y90.7 Blood alcohol level of 200-239 mg/100 ml; F17.210 Nicotine dependence, cigarettes, uncomplicated; Z71.6 Tobacco abuse counseling; Z71.41 Alcohol abuse counseling and surveillance of alcoholic; Z91.040 Latex allergy status; Z91.048 Other nonmedicinal substance allergy status; Z79.51 Long term (current) use of inhaled steroids
CPT/HCPCS: 36415; 80053; 80320; 82140; 83605; 83690; 85025; 85610; 94640; 96360; 96361; 96372; 99285

== ENCOUNTER 2023-07-14 14:28 | Observation (INO) | payer OTHER ==
[2023-07-14] MEDS ORDERED: SODIUM CHLORIDE 0.9% 1,000 ML IV STA (15:03)
--- NOTE | 2023-07-14 15:12 | ED ---
General Adult HPI - General Chief complaint: Alcohol Stated complaint: Alcohol Time Seen by Provider: 07/14/23 14:37 Source: patient, family, RN notes reviewed Mode of arrival: ambulatory Limitations: altered mental status - History of Present Illness Initial comments: Patient is a pleasantly intoxicated 43-year-old male presenting to the emergency department with family with concerns for alcohol use. Patient has history of chronic alcohol use and has been drinking again. Patient does have history of seizures with withdrawal that family is concerned about. Patient has no specific complaints at this time. - Related Data Home Medications Medication Instructions Recorded Confirmed Albuterol Sulfate [Albuterol 1 - 2 puff PO RT-QID PRN 06/05/23 07/03/23 Sulfate Hfa] Baclofen [Lioresal] 10 mg PO TID PRN 06/05/23 07/03/23 Budesonide/Formoterol Fumarate 2 puff INHALATION RT-BID 06/05/23 07/03/23 [Symbicort 160-4.5 Mcg Inhaler] HYDROcodone/APAP 7.5-325MG [[place] 1 tab PO BID PRN 06/05/23 07/03/23 7.5-325] Mirtazapine [Remeron] 45 mg PO HS 06/05/23 07/03/23 Pregabalin [Lyrica] 100 mg PO TID 06/05/23 07/03/23 diazePAM 2 mg PO TID PRN 06/05/23 07/03/23 Previous Rx's Medication Instructions Recorded Acamprosate Calcium [Campral] 666 mg PO TID #90 tab 06/06/23 Thiamine [Vitamin B-1] 100 mg PO BID #60 tab 06/06/23 Allergies Allergy/AdvReac Type Severity Reaction Status Date / Time latex Allergy Rash/Hives Verified 07/03/23 15:54 nickel Allergy Rash/Hives Verified 07/03/23 15:54 Review of Systems ROS Statement: Those systems with pertinent positive or pertinent negative responses have been documented in the HPI. ROS Other: All systems not noted in ROS Statement are negative. Constitutional: Denies: fever Eyes: Denies: eye pain ENT: Denies: ear pain Respiratory: Denies: cough Cardiovascular: Denies: chest pain Endocrine: Denies: fatigue Gastrointestinal: Denies: abdominal pain Past Medical History Past Medical History: Thyroid Disorder Additional Past Medical History / Comment(s): alcoholism, seizures from alcohol withdrawal. last seizure was 3-4 months ago, chronic back pain takes steriod shots History of Any Multi-Drug Resistant Organisms: MRSA Date of last positivie culture/infection: 2012 MDRO Source:: Right forearm Past Surgical History: Orthopedic Surgery Additional Past Surgical History / Comment(s): left index finger sx. Past Anesthesia/Blood Transfusion Reactions: No Reported Reaction Past Psychological History: Anxiety, Depression Smoking Status: Current every day smoker Past Alcohol Use History: Abuse, Daily, Heavy Past Drug Use History: Marijuana - Past Family History Father Family Medical History: Thyroid Disorder Additional Family Medical History / Comment(s): pancreatitis Mother Family Medical History: Thyroid Disorder General Exam Limitations: altered mental status General appearance: alert, in no apparent distress Head exam: Present: atraumatic, normocephalic Eye exam: Present: normal appearance, PERRL, EOMI, nystagmus ENT exam: Present: normal oropharynx Neck exam: Present: normal inspection Respiratory exam: Present: normal lung sounds bilaterally Cardiovascular Exam: Present: regular rate, normal rhythm GI/Abdominal exam: Present: soft. Absent: tenderness Extremities exam: Present: normal inspection. Absent: pedal edema, calf tenderness Neurological exam: Present: alert. Absent: motor sensory deficit Expanded Patient oriented to: Present: person, place. Absent: time Speech: Present: fluid speech Cranial nerves: EOM's Intact: Normal Motor strength exam: RUE: 5, LUE: 5, RLE: 5, LLE: 5 Eye Response: (4) open spontaneously Motor Response: (6) obeys commands Verbal Response: (4) confused conversation Psychiatric exam: Present: normal affect, normal mood Skin exam: Present: normal color Course Vital Signs 07/14/23 07/14/23 14:30 14:42 Temperature 97.7 F Pulse Rate 80 68 Respiratory 18 20 Rate Blood Pressure 109/78 130/89 O2 Sat by Pulse 97 98 Oximetry Medical Decision Making - Medical Decision Making Was pt. sent in by a medical professional or institution (, PA, FLUOROSCOPE OPERATOR, urgent care, hospital, or prison...) When possible be specific @ -No Did you speak to anyone other than the patient for history (EMS, parent, family, police, friend...)? What history was obtained from this source @ -Family is present and helps right history as patient is intoxicated Did you review nursing and triage notes (agree or disagree)? Why? @ -I reviewed and agree with nursing and triage notes Were old charts reviewed (outside hosp., previous admission, EMS record, old EKG, old radiological studies, urgent care reports/EKG's, prison records)? Report findings @ -Previous admissions reviewed Differential Diagnosis (chest pain, altered mental status, abdominal pain women, abdominal pain men, vaginal bleeding, weakness, fever, dyspnea, syncope, headache, dizziness, GI bleed, back pain, seizure, CVA, palpatations, mental health, musculoskeletal)? @ -not applicable EKG interpreted by me (3pts min.). @ -As above X-rays interpreted by me (1pt min.). @ -None done CT interpreted by me (1pt min.). @ -None done U/S interpreted by me (1pt. min.). @ -None done What testing was considered but not performed or refused? (CT, X-rays, U/S, labs)? Why? @ -None What meds were considered but not given or refused? Why? @ -None Did you discuss the management of the patient with other professionals (professionals i.e. , PA, FLUOROSCOPE OPERATOR, lab, RT, psych nurse, social work instructor, entry level, teacher, gunnery/ordnance officer, casework specialist)? Give summary @ -Case was discussed with Dr. tapia, who will admit covering for Dr. Almanza. Was smoking cessation discussed for >3mins.? @ -No Was critical care preformed (if so, how long)? @ -No Were there social determinants of health that impacted care today? How? (Homelessness, low income, unemployed, alcoholism, drug addiction, transportation, low edu. Level, literacy, decrease access to med. care, fci, rehab)? @ -No Was there de-escalation of care discussed even if they declined (Discuss DNR or withdrawal of care, Hospice)? DNR status @ -No What co-morbidities impacted this encounter? (DM, HTN, Smoking, COPD, CAD, Cancer, CVA, ARF, Chemo, Hep., AIDS, mental health diagnosis, sleep apnea, morbid obesity)? @ -None Was patient admitted / discharged? Hospital course, mention meds given and route, prescriptions, significant lab abnormalities, going to OR and other pertinent info. @ -Patient will be admitted for observation. Patient will receive Ativan if necessary. Patient and family are advised that he will need follow-up with [facility]. Patient and family updated. Undiagnosed new problem with uncertain prognosis? @ -No Drug Therapy requiring intensive monitoring for toxicity (Heparin, Nitro, Insulin, Cardizem)? @ -No Were any procedures done? @ -No Diagnosis/symptom? @ -Alcohol intoxication Acute, or Chronic, or Acute on Chronic? @ -Acute Uncomplicated (without systemic symptoms) or Complicated (systemic symptoms)? @ -default Side effects of treatment? @ -No Exacerbation, Progression, or Severe Exacerbation? @ -No Poses a threat to life or bodily function? How? (Chest pain, [place], [place], pneumonia, PE, COPD, DKA, ARF, appy, cholecystitis, CVA, Diverticulitis, Homicidal, Suicidal, threat to staff... and all critical care pts) @ -No Disposition Clinical Impression: Alcohol intoxication Disposition: ADMITTED IP TO THIS HOSP Is patient prescribed a controlled substance at d/c from ED?: No Referrals: Shaheen Almanza MD [Primary Care Provider] - 1-2 days Time of Disposition: 15:48
[2023-07-14] MEDS ORDERED: LORazepam 0.5 MG TAB PO PRN (15:48)
[2023-07-14] MEDS ORDERED: LORazepam 1 MG TAB PO PRN (15:48)
[2023-07-14] MEDS ORDERED: THIAMINE 100 MG/ML 2 ML VIAL IM STA (15:48)
[2023-07-14] MEDS ORDERED: NALOXONE 0.4 MG/ML 1 ML VIAL IV PRN (15:49)
[2023-07-14 16:08] LABS: Anisocytosis Slight; Basophils % (A) 0 %; Eosinophils # (A) 0.1 k/uL (0-0.7); Eosinophils % (A) 1 %; HCT 45.1 % (39.0-53.0); Lymphocytes # (A) 2.3 k/uL (1.0-4.8); Lymphocytes % (A) 26 %; MCH 30.6 pg (25.0-35.0); MCHC 33.2 g/dL (31.0-37.0); MCV 92.2 fL (80.0-100.0); Mean Platelet Volume 7.2; Monocytes # (A) 0.5 k/uL (0-1.0); Monocytes % (A) 6 %; Neutrophils # (A) 6.1 k/uL (1.3-7.7); Neutrophils % (A) 66 %; Platelet Count 284 k/uL (150-450); RBC 4.89 m/uL (4.30-5.90); WBC 9.2 k/uL (3.8-10.6)
[2023-07-14] MEDS: MULTIVITAMINS, THERA 1 EACH TAB PO SCH (16:09)
[2023-07-14] MEDS: LORazepam 1 MG TAB PO PRN (16:09)
[2023-07-14 16:16] LABS: ALT 40 U/L (4-49); AST 31 U/L (17-59); African American GFR (CKD) >90 (>60 ml/min/1.73 sqM); Albumin 4.1 g/dL (3.5-5.0); Alkaline Phosphatase 39 U/L (38-126); Anion Gap 12 mmol/L; Blood Urea Nitrogen 22 mg/dL (9-20); Calcium 8.5 mg/dL (8.4-10.2); Carbon Dioxide 25 mmol/L (22-30); Chloride 104 mmol/L (98-107); Glucose 134 mg/dL (74-99); Magnesium 2.2 mg/dL (1.6-2.3); Non-African American GFR(CKD) >90 (>60 ml/min/1.73 sqM); Potassium 4.4 mmol/L (3.5-5.1); Sodium 141 mmol/L (137-145); Total Bilirubin 0.4 mg/dL (0.2-1.3)
[2023-07-14 16:59] LABS: Alcohol 459 mg/dL
[2023-07-14] MEDS ORDERED: ALBUTEROL HFA INHALER INHALATION PRN (18:13)
--- NOTE | 2023-07-14 18:19 | P.HPIM ---
History of Present Illness H&P Date: 07/14/23 Chief Complaint: Alcohol intoxication 43-year-old male, history of asthma, depression and alcohol abuse with history of alcohol withdrawal seizures about 3-4 months ago, chronic back pain, presenting to the emergency department with family with concerns for alcohol use. Patient has history of chronic alcohol use and has been drinking again. Patient does have history of seizures with withdrawal that family is concerned about. Patient has no specific complaints at this time. Blood work completed immediately with WBC of 9.2, hemoglobin 15, hematocrit of 45.1 and platelet count of 284, sodium 141, potassium 4.4, BUN/creatinine of 22/0.80, blood glucose of 134, with serum alcohol level of 459 Review of Systems REVIEW OF SYSTEMS: CONSTITUTIONAL: No fever, no malaise, no fatigue. HEENT: No recent visual problems or hearing problems. Denied any sore throat. CARDIOVASCULAR: No chest pain, orthopnea, PND, no palpitations, no syncope. PULMONARY: No shortness of breath, no cough, no hemoptysis. GASTROINTESTINAL: No diarrhea, no nausea, no vomiting, no abdominal pain. NEUROLOGICAL: No headaches, no weakness, no numbness. HEMATOLOGICAL: Denies any bleeding or petechiae. GENITOURINARY: Denies any burning micturition, frequency, or urgency. MUSCULOSKELETAL/RHEUMATOLOGICAL: Denies any joint pain, swelling, or any muscle pain. ENDOCRINE: Denies any polyuria or polydipsia. The rest of the 14-point review of systems is negative. Past Medical History Past Medical History: Thyroid Disorder Additional Past Medical History / Comment(s): alcoholism, seizures from alcohol withdrawal. last seizure was 3-4 months ago, chronic back pain takes steriod shots History of Any Multi-Drug Resistant Organisms: MRSA Date of last positivie culture/infection: 2012 MDRO Source:: Right forearm Past Surgical History: Orthopedic Surgery Additional Past Surgical History / Comment(s): left index finger sx. Past Anesthesia/Blood Transfusion Reactions: No Reported Reaction Past Psychological History: Anxiety, Depression Smoking Status: Current every day smoker Past Alcohol Use History: Abuse, Daily, Heavy Past Drug Use History: Marijuana - Past Family History Father Family Medical History: Thyroid Disorder Additional Family Medical History / Comment(s): pancreatitis Mother Family Medical History: Thyroid Disorder Medications and Allergies Home Medications Medication Instructions Recorded Confirmed Type Albuterol Sulfate [Albuterol 1 - 2 puff INHALATION RT-QID PRN 06/05/23 07/14/23 History Sulfate Hfa] Baclofen [Lioresal] 10 mg PO TID PRN 06/05/23 07/14/23 History Budesonide/Formoterol Fumarate 2 puff INHALATION RT-BID 06/05/23 07/14/23 History [Symbicort 160-4.5 Mcg Inhaler] HYDROcodone/APAP 7.5-325MG [[place] 1 tab PO BID PRN 06/05/23 07/14/23 History 7.5-325] Mirtazapine [Remeron] 45 mg PO HS 06/05/23 07/14/23 History Pregabalin [Lyrica] 100 mg PO TID 06/05/23 07/14/23 History diazePAM 2 mg PO TID PRN 06/05/23 07/14/23 History Acamprosate Calcium [Campral] 666 mg PO TID #90 tab 06/06/23 07/14/23 Rx Thiamine [Vitamin B-1] 100 mg PO BID #60 tab 06/06/23 07/14/23 Rx Allergies Allergy/AdvReac Type Severity Reaction Status Date / Time latex Allergy Rash/Hives Verified 07/14/23 16:12 nickel Allergy Rash/Hives Verified 07/14/23 16:12 Physical Exam Vitals: Vital Signs Temp Pulse Resp BP Pulse Ox 07/14/23 16:00 76 16 119/76 98 07/14/23 15:48 65 18 138/89 98 07/14/23 14:42 68 20 130/89 98 07/14/23 14:30 97.7 F 80 18 109/78 97 Intake and Output 07/14/23 07/14/23 07/14/23 06:59 14:59 22:59 Other: Weight 95.254 kg PHYSICAL EXAMINATION: GENERAL: The patient is alert and oriented x3, not in any acute distress. Well developed, well nourished. HEENT: Pupils are round and equally reacting to light. EOMI. No scleral icterus. No conjunctival pallor. Normocephalic, atraumatic. No pharyngeal erythema. No thyromegaly. CARDIOVASCULAR: S1 and S2 present. No murmurs, rubs, or gallops. PULMONARY: Chest is clear to auscultation, no wheezing or crackles. ABDOMEN: Soft, nontender, nondistended, normoactive bowel sounds. No palpable organomegaly. MUSCULOSKELETAL: No joint swelling or deformity. EXTREMITIES: No cyanosis, clubbing, or pedal edema. NEUROLOGICAL: Gross neurological examination did not reveal any focal deficits. SKIN: No rashes. Results CBC & Chem 7: 07/14/23 15:47 07/14/23 15:47 Labs: Abnormal Lab Results - Last 24 Hours (Table) 07/14/23 Range/Units 15:47 RDW 16.0 H (11.5-15.5) % Assessment and Plan Assessment: 1. Alcohol intoxication/abuse with impending withdrawal - IV fluids normal saline at a rate of 1 25 mL an hour; thiamine 100 mg daily; CIWA protocol with IV Ativan - Consult 2. History of alcohol withdrawal seizures; seizure precautions 3. Mild AK I; patient has been placed on IV fluids in form of normal saline at a rate of 125 mL an hour; we will monitor strict XENIA's, daily weights, renal function and electrolytes, wide nephrotoxins and hypotension 4. Mild hyperglycemia; likely related to alcohol intoxication; we will monitor Accu-Cheks as needed 5. Depression; Remeron 45 mg by mouth daily at bedtime 6. Chronic back pain; patient takes [place] 7.5 mg along with Lyrica 100 mg 3 times a day, baclofen 10 mg 3 times a day 7. Asthma; not in exacerbation; continue with home inhaler therapy DVT prophylaxis; SCDs CODE STATUS; full code
[2023-07-14] MEDS: SODIUM CHLORIDE 0.9% 1,000 ML IV SCH (18:22)
[2023-07-14] MEDS: SYMBICORT 160-4.5 MCG INHALER INHALATION SCH (20:01)
[2023-07-14] MEDS: THIAMINE 100 MG TAB PO SCH (21:17)
[2023-07-14] MEDS: MIRTAZAPINE 45 MG TABLET PO SCH (21:17)
[2023-07-14] MEDS: PREGABALIN 100 MG CAP PO SCH (21:17)
[2023-07-14] MEDS: ACAMPROSATE CALCIUM 333 MG TABLET.DR PO SCH (21:17)
[2023-07-15] MEDS: LORazepam 1 MG TAB PO PRN ×6 (00:17→23:55)
[2023-07-15] MEDS: SODIUM CHLORIDE 0.9% 1,000 ML IV SCH ×4 (00:18→23:55)
[2023-07-15] MEDS: HYDROcodone/APAP 7.5-325MG 1 EACH TAB PO PRN ×2 (00:18→09:25)
[2023-07-15] MEDS: SYMBICORT 160-4.5 MCG INHALER INHALATION SCH ×2 (07:45→20:13)
[2023-07-15] MEDS: MULTIVITAMINS, THERA 1 EACH TAB PO SCH (09:25)
[2023-07-15] MEDS: ACAMPROSATE CALCIUM 333 MG TABLET.DR PO SCH ×3 (09:25→21:47)
[2023-07-15] MEDS: PREGABALIN 100 MG CAP PO SCH ×3 (09:25→21:47)
[2023-07-15] MEDS: THIAMINE 100 MG TAB PO SCH ×3 (09:25→20:47)
[2023-07-15 10:59] LABS: African American GFR (CKD) >90 (>60 ml/min/1.73 sqM); Anion Gap 13 mmol/L; Blood Urea Nitrogen 25 mg/dL (9-20); Calcium 7.9 mg/dL (8.4-10.2); Carbon Dioxide 21 mmol/L (22-30); Chloride 108 mmol/L (98-107); Glucose 102 mg/dL (74-99); Non-African American GFR(CKD) >90 (>60 ml/min/1.73 sqM); Potassium 4.5 mmol/L (3.5-5.1); Sodium 142 mmol/L (137-145)
[2023-07-15] MEDS: MIRTAZAPINE 45 MG TABLET PO SCH (20:47)
--- NOTE | 2023-07-15 21:01 | P.PN ---
Subjective Progress Note Date: 07/15/23 43-year-old male, history of asthma, depression and alcohol abuse with history of alcohol withdrawal seizures about 3-4 months ago, chronic back pain, presenting to the emergency department with family with concerns for alcohol use. Patient has history of chronic alcohol use and has been drinking again. Patient does have history of seizures with withdrawal that family is concerned about. Patient has no specific complaints at this time. Blood work completed immediately with WBC of 9.2, hemoglobin 15, hematocrit of 45.1 and platelet count of 284, sodium 141, potassium 4.4, BUN/creatinine of 22/0.80, blood glucose of 134, with serum alcohol level of 459 Objective - Vital Signs Vital signs: Vital Signs Temp 99.1 F 07/15/23 07:59 Pulse 75 07/15/23 07:59 Resp 16 07/15/23 07:59 BP 109/64 07/15/23 07:59 Pulse Ox 95 07/15/23 07:59 FiO2 Intake & Output 07/14/23 07/15/23 07/15/23 18:59 06:59 18:59 Intake Total 2510 Output Total 1200 Balance 1310 Weight 95.254 kg Intake: Intake, IV Titration 1560 Amount Sodium Chloride 0.9% 1, 1560 000 ml @ 130 mls/hr IV . Q7H42M [facility] Rx#:[id number] Oral 950 Output: Urine 1200 - Exam GENERAL: The patient is alert and oriented x3, not in any acute distress. Well developed, well nourished. HEENT: Pupils are round and equally reacting to light. EOMI. No scleral icterus. No conjunctival pallor. Normocephalic, atraumatic. No pharyngeal erythema. No thyromegaly. CARDIOVASCULAR: S1 and S2 present. No murmurs, rubs, or gallops. PULMONARY: Chest is clear to auscultation, no wheezing or crackles. ABDOMEN: Soft, nontender, nondistended, normoactive bowel sounds. No palpable organomegaly. MUSCULOSKELETAL: No joint swelling or deformity. EXTREMITIES: No cyanosis, clubbing, or pedal edema. NEUROLOGICAL: Gross neurological examination did not reveal any focal deficits. SKIN: No rashes. - Labs CBC & Chem 7: 07/14/23 15:47 07/15/23 08:53 Labs: Abnormal Lab Results - Last 24 Hours (Table) 07/14/23 07/14/23 Range/Units 15:47 15:47 RDW 16.0 H (11.5-15.5) % BUN 22 H (9-20) mg/dL Glucose 134 H (74-99) mg/dL Serum Alcohol 459 H* mg/dL Assessment and Plan Assessment: 1. Alcohol intoxication/abuse with impending withdrawal - IV fluids normal saline at a rate of 1 25 mL an hour; thiamine 100 mg daily; [facility] protocol with IV Ativan - Consult 2. History of alcohol withdrawal seizures; seizure precautions 3. Mild AK I; patient has been placed on IV fluids in form of normal saline at a rate of 125 mL an hour; we will monitor strict EXNIA's, daily weights, renal fun ction and electrolytes, wide nephrotoxins and hypotension 4. Mild hyperglycemia; likely related to alcohol intoxication; we will monitor Accu-Cheks as needed 5. Depression; Remeron 45 mg by mouth daily at bedtime 6. Chronic back pain; patient takes [place] 7.5 mg along with Lyrica 100 mg 3 times a day, baclofen 10 mg 3 times a day 7. Asthma; not in exacerbation; continue with home inhaler therapy DVT prophylaxis; SCDs CODE STATUS; full code
[2023-07-16] MEDS: SODIUM CHLORIDE 0.9% 1,000 ML IV SCH ×3 (06:20→20:34)
[2023-07-16] MEDS: SYMBICORT 160-4.5 MCG INHALER INHALATION SCH ×2 (08:03→19:39)
[2023-07-16] MEDS: THIAMINE 100 MG TAB PO SCH ×3 (08:22→20:29)
[2023-07-16] MEDS: ACAMPROSATE CALCIUM 333 MG TABLET.DR PO SCH ×3 (08:42→21:11)
[2023-07-16] MEDS: PREGABALIN 100 MG CAP PO SCH ×3 (08:42→21:11)
[2023-07-16] MEDS: MULTIVITAMINS, THERA 1 EACH TAB PO SCH (08:42)
[2023-07-16] MEDS: HYDROcodone/APAP 7.5-325MG 1 EACH TAB PO PRN ×2 (08:46→20:29)
[2023-07-16] MEDS: BACLOFEN 10 MG TAB PO PRN ×2 (08:47→17:26)
[2023-07-16 11:03] LABS: BUN/Creat Ratio 21.86 Ratio (12.00-20.00); Blood Urea Nitrogen 15.3 mg/dL (9.0-27.0); Calcium 8.2 mg/dL (8.7-10.3); Carbon Dioxide 23.2 mmol/L (21.6-31.8); Chloride 109 mmol/L (96-109); Glucose 91 mg/dL (70-110); Potassium 3.9 mmol/L (3.5-5.5); Sodium 142 mmol/L (135-145)
[2023-07-16] MEDS: PANTOPRAZOLE 40 MG TABLET PO SCH ×2 (14:16→17:07)
--- NOTE | 2023-07-16 14:41 | XR ---
EXAMINATION TYPE: XR chest 2V DATE OF EXAM: 07/16/2023 COMPARISON: None INDICATION: Chest pain TECHNIQUE: Frontal and lateral views of the chest are obtained. FINDINGS: The heart size is normal. The pulmonary vasculature is normal. The lungs are clear. IMPRESSION: 1. No acute pulmonary process.
[2023-07-16 15:25] LABS: Creatine Kinase MB 0.5 ng/mL (0.0-3.4); Troponin I <0.012 ng/mL (0.000-0.034)
[2023-07-16] MEDS: MAG HYDROX/AL HYDROX/SIMETH 30 ML CUP PO SCH ×2 (17:33→21:10)
[2023-07-16] MEDS: MIRTAZAPINE 45 MG TABLET PO SCH (20:29)
--- NOTE | 2023-07-17 06:15 | PN ---
PROGRESS NOTE CHIEF COMPLAINT: Acute alcohol intoxication with alcoholic hepatitis and esophagitis. HISTORY OF PRESENT ILLNESS: This gentleman is complaining of quite a bit of esophageal irritation. He is still in DTs. PHYSICAL EXAMINATION: CHEST: Clear. CARDIAC: Normal. ABDOMEN: Soft, nontender. IMPRESSION: 1. Delirium tremens. 2. Gastritis and esophagitis. PLAN: Continue with CIWA protocol and we will try Maalox and Protonix for his esophagitis. MMODL / IJN: [id number] /
[2023-07-17] MEDS: SYMBICORT 160-4.5 MCG INHALER INHALATION SCH (07:33)
[2023-07-17 07:39] VITALS: BP 127/76; PULSE 52; RESP 18; TEMP 98
[2023-07-17] MEDS: MAG HYDROX/AL HYDROX/SIMETH 30 ML CUP PO SCH (08:50)
[2023-07-17] MEDS: THIAMINE 100 MG TAB PO SCH ×2 (08:51→08:52)
[2023-07-17] MEDS: PANTOPRAZOLE 40 MG TABLET PO SCH (08:52)
[2023-07-17] MEDS: BACLOFEN 10 MG TAB PO PRN (08:52)
[2023-07-17] MEDS: MULTIVITAMINS, THERA 1 EACH TAB PO SCH (08:52)
[2023-07-17] MEDS: HYDROcodone/APAP 7.5-325MG 1 EACH TAB PO PRN (08:52)
[2023-07-17] MEDS: PREGABALIN 100 MG CAP PO SCH (08:52)
[2023-07-17] MEDS: ACAMPROSATE CALCIUM 333 MG TABLET.DR PO SCH (08:53)
[2023-07-17] MEDS: SODIUM CHLORIDE 0.9% 1,000 ML IV SCH (08:54)
[2023-07-17 09:07] LABS: BUN/Creat Ratio 16.57 Ratio (12.00-20.00); Blood Urea Nitrogen 11.6 mg/dL (9.0-27.0); Calcium 8.4 mg/dL (8.7-10.3); Carbon Dioxide 22.2 mmol/L (21.6-31.8); Chloride 108 mmol/L (96-109); Glucose 98 mg/dL (70-110); Potassium 4.5 mmol/L (3.5-5.5); Sodium 140 mmol/L (135-145)
--- NOTE | 2023-07-18 20:47 | DS ---
DISCHARGE SUMMARY CHIEF COMPLAINT: Acute alcohol intoxication. HISTORY OF PRESENT ILLNESS AND PHYSICAL EXAMINATION: Details of this man's history and physical exam can be found in the initial workup. COURSE IN THE HOSPITAL: After admission, he was placed on bedrest and once again started on the CIWA protocol. He was stabilized and doing well. It was felt that he could be discharged on the . He will follow up in the office in several days. FINAL DIAGNOSES: 1. Acute alcohol intoxication. 2. Chronic alcoholism. 3. Chronic obstructive pulmonary disease. 4. Depression. OPERATIONS: None. CONSULTATION: None. CONDITION: He is improved. MMODL / IJN: [id number] /
== END 2023-07-17 11:47 | disposition home or self-care (01) ==
LOC: EC 14:28 → 5NMEDONC 15:49
PROVIDERS: ADMIT Family Medicine; ATTEND Family Medicine
DX: F10.229 Alcohol dependence with intoxication, unspecified (principal); F10.231 Alcohol dependence with withdrawal delirium; J44.9 Chronic obstructive pulmonary disease, unspecified; F32.A Depression, unspecified; R73.9 Hyperglycemia, unspecified; E07.9 Disorder of thyroid, unspecified; F41.9 Anxiety disorder, unspecified; G89.29 Other chronic pain; M54.9 Dorsalgia, unspecified; Y90.8 Blood alcohol level of 240 mg/100 ml or more; N17.9 Acute kidney failure, unspecified; K70.10 Alcoholic hepatitis without ascites; K20.90 Esophagitis, unspecified without bleeding; K29.70 Gastritis, unspecified, without bleeding; F17.200 Nicotine dependence, unspecified, uncomplicated; Z86.14 Personal history of Methicillin resistant Staphylococcus aureus infection; Z79.51 Long term (current) use of inhaled steroids; Z79.899 Other long term (current) drug therapy; Z91.040 Latex allergy status; Z91.048 Other nonmedicinal substance allergy status; Z83.49 Family history of other endocrine, nutritional and metabolic diseases
CPT/HCPCS: 96361 ×5; 96360; 96372; 99285; 94640 ×5; 93005; 80053; 80048 ×3; 82553; 83735 ×2; 84484; 85025; 80320; 71046; G0378 ×4; J3411